=== PATIENT | male | born 1940 | race Caucasian/White ===

== ENCOUNTER 2016-04-30 18:30 | Inpatient (IN) | payer OTHER ==
[~2016-04-30] VITALS: Ht 177.8 cm; Wt 57.9 kg
[~2016-04-30 18:30] MED LIST: ALBU0.084 NEB; ASPI81CH43 PO; DOXY-216 PO; IPRASOL39 NEB; LIS10T PO; MET25T PO
[2016-04-30] MEDS ORDERED: ALBUTEROL SULF 2.5 MG/0.5ML(0.5%) NEB SOLN NEB ONE (19:00)
[2016-04-30] MEDS ORDERED: IPRATROPIUM BROM 0.5 MG/2.5ML INH SOL NEB ONE (19:00)
[2016-04-30 19:17] LABS: Basophils # (auto) 0 uL; Basophils % (auto) 0.3 % (0.0-2.0); Eosinophils # (auto) 0 uL; Eosinophils % (auto) 0.1 % (0.0-7.0); Hematocrit 44.7 % (41.0-53.0); Hemoglobin 14.4 g/dL (13.5-17.5); Lymphocytes # (auto) 0.4 uL; Lymphocytes % (auto) 8.5 % (10.0-50.0); Mean Corpuscular Hemoglobin 29.3 pg (28.0-32.0); Mean Corpuscular Hgb Conc. 32.2 g/dL (32.0-36.0); Mean Corpuscular Volume 91.1 fL (80.0-100.0); Mean Platelet Volume 7.4 fL (7.4-10.4); Monocytes # (auto) 0.2 uL; Monocytes % (auto) 3.5 % (0.0-12.0); Neutrophils # (auto) 4.2 uL; Neutrophils % (auto) 87.6 % (37.0-80.0); Platelet Count (auto) 366 10^3/uL (140-450); Red Cell Distribution Width 14.7 % (11.6-16.0); White Blood Cell 4.8 10^3/uL (4.4-10.8)
[2016-04-30 19:42] LABS: Albumin 3.4 g/dL (3.4-5.0); BUN/Creatinine Ratio 10.7; Bilirubin, Total 0.3 mg/dL (0.2-1.0); Calcium 8.8 mg/dL (8.5-10.1); Potassium 4.4 mmol/L (3.5-5.1)
[2016-04-30] MEDS ORDERED: cefTRIAXone 1GM/50ML D5W 50 ML IV ONE ×2 (20:15→21:30)
[2016-04-30] MEDS ORDERED: SODIUM CHLORIDE 0.9% 1,000 ML IV ONE (20:15)
[2016-04-30] MEDS ORDERED: methylPREDNISolone SOD SUCC 125 MG/2 ML VL IV ONE (20:15)
[2016-04-30] MEDS: SODIUM CHLORIDE 0.9% 1,000 ML IV SCH (21:24)
[2016-04-30] MEDS ORDERED: LACTULOSE 20Gm/30ML SOLN PO PRN (21:30)
[2016-04-30] MEDS ORDERED: PANTOPRAZOLE SODIUM 40 MG/10 ML VIAL IV ONE (21:30)
[2016-04-30] MEDS ORDERED: NITROGLYCERIN 0.4 MG SL TAB SL PRN (21:30)
[2016-04-30] MEDS ORDERED: MORPHINE SULF INJ 2 MG/ML SYRINGE 1ML IV PRN (21:30)
[2016-04-30] MEDS ORDERED: IOHEXOL 350 MG/ML 100ML IJ ONE (21:35)
[2016-04-30] MEDS ORDERED: ASPirin 81 mg TAB PO ONE (21:45)
[2016-04-30] MEDS: ENOXAPARIN SOD 80 MG/0.8ML SYRINGE SC SCH (22:00)
[2016-04-30] MEDS: METOPROLOL TARTRATE 25 MG TAB PO SCH (22:00)
[2016-04-30] MEDS: IPRATROPIUM BROM 0.5 MG/2.5ML INH SOL NEB SCH (22:28)
[2016-04-30] MEDS: ALBUTEROL SULF 2.5 MG/0.5ML(0.5%) NEB SOLN NEB SCH (22:28)
[2016-05-01] VITALS (7 sets, daily range): BP systolic 104–140; BP diastolic 56–84
[2016-05-01] MEDS: ALBUTEROL SULF 2.5 MG/0.5ML(0.5%) NEB SOLN NEB SCH ×5 (02:42→21:52)
[2016-05-01] MEDS: IPRATROPIUM BROM 0.5 MG/2.5ML INH SOL NEB SCH ×5 (02:42→21:51)
[2016-05-01 05:33] LABS: Basophils # (auto) 0 uL; Basophils % (auto) 0.3 % (0.0-2.0); Eosinophils # (auto) 0 uL; Eosinophils % (auto) 0.1 % (0.0-7.0); Hematocrit 40.4 % (41.0-53.0); Hemoglobin 13.1 g/dL (13.5-17.5); Lymphocytes # (auto) 0.6 uL; Mean Corpuscular Hemoglobin 29.5 pg (28.0-32.0); Mean Corpuscular Hgb Conc. 32.5 g/dL (32.0-36.0); Mean Corpuscular Volume 90.6 fL (80.0-100.0); Mean Platelet Volume 7.5 fL (7.4-10.4); Monocytes # (auto) 0.1 uL; Monocytes % (auto) 2.1 % (0.0-12.0); Neutrophils # (auto) 3.6 uL; Neutrophils % (auto) 83.5 % (37.0-80.0); Platelet Count (auto) 361 10^3/uL (140-450); Red Cell Distribution Width 14.6 % (11.6-16.0); White Blood Cell 4.3 10^3/uL (4.4-10.8)
[2016-05-01 05:54] LABS: Potassium 4.7 mmol/L (3.5-5.1)
[2016-05-01 05:56] LABS: BUN/Creatinine Ratio 14.5; Calcium 8.5 mg/dL (8.5-10.1)
[2016-05-01 05:58] LABS: Bilirubin, Total 0.2 mg/dL (0.2-1.0); Total Protein 6.3 g/dL (6.4-8.2)
[2016-05-01] MEDS ORDERED: ASPI325T4 PO (06:53)
[2016-05-01] MEDS ORDERED: GABA300C8 PO (06:55)
[2016-05-01] MEDS ORDERED: PRE1T PO (07:00)
[2016-05-01] MEDS: cefTRIAXone 1GM/50ML D5W 50 ML IV SCH (09:11)
[2016-05-01] MEDS: ASPirin 81 mg TAB PO SCH (09:12)
[2016-05-01] MEDS: PANTOPRAZOLE SODIUM 40 MG/10 ML VIAL IV SCH (09:13)
[2016-05-01] MEDS: methylPREDNISolone SOD SUCC 125 MG/2 ML VL IV SCH (09:13)
[2016-05-01] MEDS: LISINOPRIL 10 MG TAB PO SCH (09:14)
[2016-05-01] MEDS: METOPROLOL TARTRATE 25 MG TAB PO SCH ×2 (09:15→22:18)
[2016-05-01] MEDS: DILTIAZEM HCL 120MG ER CAP PO SCH (09:15)
[2016-05-01] MEDS: ENOXAPARIN SOD 80 MG/0.8ML SYRINGE SC SCH ×2 (09:30→22:19)
[2016-05-01] MEDS: SODIUM CHLORIDE 0.9% 1,000 ML IV SCH ×2 (09:54→22:19)
[2016-05-01] MEDS ORDERED: ENOXAPARIN SOD 30 MG/0.3 ML SYRINGE SC SCH (10:00)
[2016-05-01] MEDS: ACETAMINOPHEN 325 MG TAB PO PRN (13:29)
[2016-05-01] MEDS: BUDESONIDE (INHALATION) 0.5 MG/2 ML NEB NEB SCH (21:51)
[2016-05-02] MEDS: ACETAMINOPHEN 325 MG TAB PO PRN ×2 (02:01→06:18)
[2016-05-02] MEDS: IPRATROPIUM BROM 0.5 MG/2.5ML INH SOL NEB SCH ×4 (02:45→14:58)
[2016-05-02] MEDS: ALBUTEROL SULF 2.5 MG/0.5ML(0.5%) NEB SOLN NEB SCH ×4 (02:45→14:59)
[2016-05-02 05:00] VITALS: BP 117/69
[2016-05-02 05:21] LABS: Basophils # (auto) 0.2 uL; Basophils % (auto) 1.6 % (0.0-2.0); Eosinophils # (auto) 0 uL; Eosinophils % (auto) 0.1 % (0.0-7.0); Hematocrit 37.2 % (41.0-53.0); Hemoglobin 12.3 g/dL (13.5-17.5); Lymphocytes # (auto) 0.9 uL; Lymphocytes % (auto) 7.4 % (10.0-50.0); Mean Platelet Volume 8.4 fL (7.4-10.4); Monocytes # (auto) 0.4 uL; Monocytes % (auto) 3.3 % (0.0-12.0); Neutrophils # (auto) 10.6 uL; Neutrophils % (auto) 87.6 % (37.0-80.0); Platelet Count (auto) 372 10^3/uL (140-450); Red Cell Distribution Width 14.9 % (11.6-16.0); White Blood Cell 12.1 10^3/uL (4.4-10.8)
[2016-05-02 05:41] LABS: Calcium 8.1 mg/dL (8.5-10.1); Potassium 4.6 mmol/L (3.5-5.1)
[2016-05-02 05:44] LABS: BUN/Creatinine Ratio 21.7
[2016-05-02] MEDS: BUDESONIDE (INHALATION) 0.5 MG/2 ML NEB NEB SCH (06:52)
[2016-05-02 08:47] VITALS: BP 126/75
[2016-05-02] MEDS: ASPirin 81 mg TAB PO SCH (09:38)
[2016-05-02] MEDS: METOPROLOL TARTRATE 25 MG TAB PO SCH (09:38)
[2016-05-02] MEDS: ENOXAPARIN SOD 80 MG/0.8ML SYRINGE SC SCH (09:39)
[2016-05-02] MEDS: PANTOPRAZOLE SODIUM 40 MG/10 ML VIAL IV SCH (09:39)
[2016-05-02] MEDS: DILTIAZEM HCL 120MG ER CAP PO SCH (09:39)
[2016-05-02] MEDS: methylPREDNISolone SOD SUCC 125 MG/2 ML VL IV SCH (09:39)
[2016-05-02] MEDS: cefTRIAXone 1GM/50ML D5W 50 ML IV SCH (09:39)
[2016-05-02] MEDS: LISINOPRIL 10 MG TAB PO SCH (09:40)
[2016-05-02] MEDS: SODIUM CHLORIDE 0.9% 1,000 ML IV SCH (09:40)
[2016-05-02 13:00] VITALS: BP 121/80
[2016-05-02 15:23] VITALS: BP 121/80
== END 2016-05-02 16:12 | disposition home or self-care (01) | DRG 190 ==
LOC: ER 18:30 → EDBD 18:30 → TELE-WESTW 18:31
PROVIDERS: ADMIT Family Medicine; ATTEND Family Medicine
DX: J44.0 Chronic obstructive pulmonary disease with (acute) lower respiratory infection (principal); J96.20 Acute and chronic respiratory failure, unspecified whether with hypoxia or hypercapnia; J18.9 Pneumonia, unspecified organism; E87.1 Hypo-osmolality and hyponatremia; J44.1 Chronic obstructive pulmonary disease with (acute) exacerbation; E87.8 Other disorders of electrolyte and fluid balance, not elsewhere classified; K20.9 Esophagitis, unspecified; G62.9 Polyneuropathy, unspecified; I10 Essential (primary) hypertension; Z87.891 Personal history of nicotine dependence; Z99.81 Dependence on supplemental oxygen; Z82.49 Family history of ischemic heart disease and other diseases of the circulatory system
CPT/HCPCS: 36415; 71010; 71275; 80048; 80053; 84484; 85025; 85379; 87070; 87205; 93005; 93970; 94640; 94761; 96374; 96375; C9113; J0696

== ENCOUNTER → 2016-06-30 | Outpatient (CLI) | payer OTHER ==
[~2016-06-30] MED LIST changes: +ASPI325T4 PO; +GABA300C8 PO; +PRE1T PO
[2016-06-30 10:17] LABS: Urine Bilirubin Negative (Negative); Urine Blood Negative /uL (Negative); Urine Color Yellow (Yellow); Urine Glucose Normal (Normal); Urine Ketone Negative (Negative); Urine Nitrite Negative (Negative); Urine RBC <1 /hpf (0 - 3); Urine Squamous Epithelial Cell FEW /hpf (<5); Urine Urobilinogen Normal (Negative); Urine pH 6.5 (5.0-8.0)
[2016-06-30 10:38] LABS: INR 1.09 (0.9-1.15); Partial Thromboplastin Time 24.8 sec (22.64-33.71); Prothrombin Time 11.2 sec (9.37-12.3)
[2016-06-30 10:43] LABS: DEFINITIVE VIEW TRANSMISSION; Hematocrit 39.6 % (41.0-53.0); Hemoglobin 13.2 g/dL (13.5-17.5); Mean Corpuscular Hemoglobin 30.8 pg (28.0-32.0); Mean Corpuscular Hgb Conc. 33.4 g/dL (32.0-36.0); Mean Corpuscular Volume 92.2 fL (80.0-100.0); Platelet Count (auto) 410 10^3/uL (140-450); Red Cell Distribution Width 14.9 % (11.6-16.0); White Blood Cell 16.5 10^3/uL (4.4-10.8)
[2016-06-30 10:44] LABS: Albumin 3.4 g/dL (3.4-5.0); BUN/Creatinine Ratio 17.1; Bilirubin, Total 0.6 mg/dL (0.2-1.0); Calcium 9.3 mg/dL (8.5-10.1); Potassium 4.2 mmol/L (3.5-5.1); Total Protein 6.9 g/dL (6.4-8.2)
[2016-06-30 10:48] LABS: Metamyelocytes % 0; Myelocytes % 0; Promyelocytes % 0; Reactive Lymphocytes 0
[2016-06-30 11:47] LABS: Platelet Estimate Adequate
[2016-06-30 11:48] LABS: RBC Morphology Normal
== END | disposition home or self-care (01) ==
LOC: LAB 09:37
DX: Z01.818 Encounter for other preprocedural examination (principal)
CPT/HCPCS: 36415; 80053; 81001; 85007; 85027; 85610; 85730

== ENCOUNTER → 2016-08-05 | Outpatient (CLI) | payer OTHER ==
[2016-08-05 14:31] LABS: Basophils # (auto) 0 uL; Basophils % (auto) 0.4 % (0.0-2.0); Eosinophils # (auto) 0 uL; Eosinophils % (auto) 0.3 % (0.0-7.0); Hematocrit 41.9 % (41.0-53.0); Hemoglobin 13.7 g/dL (13.5-17.5); Lymphocytes # (auto) 1.6 uL; Lymphocytes % (auto) 14.3 % (10.0-50.0); Mean Corpuscular Hemoglobin 30.1 pg (28.0-32.0); Mean Corpuscular Hgb Conc. 32.8 g/dL (32.0-36.0); Mean Platelet Volume 7.4 fL (7.4-10.4); Monocytes # (auto) 0.1 uL; Monocytes % (auto) 1.2 % (0.0-12.0); Neutrophils # (auto) 9.4 uL; Neutrophils % (auto) 83.8 % (37.0-80.0); Platelet Count (auto) 478 10^3/uL (140-450); Red Cell Distribution Width 14.5 % (11.6-16.0); White Blood Cell 11.3 10^3/uL (4.4-10.8)
[2016-08-05 14:34] LABS: Urine Bilirubin Negative (Negative); Urine Blood Negative /uL (Negative); Urine Color Yellow (Yellow); Urine Glucose Normal (Normal); Urine Ketone Negative (Negative); Urine Nitrite Negative (Negative); Urine Urobilinogen Normal (Negative)
[2016-08-05 14:52] LABS: Partial Thromboplastin Time 23.8 sec (22.64-33.71); Prothrombin Time 10.8 sec (9.37-12.3)
[2016-08-05 14:59] LABS: Albumin 3.7 g/dL (3.4-5.0); BUN/Creatinine Ratio 17.4; Bilirubin, Total 0.4 mg/dL (0.2-1.0); Calcium 9.4 mg/dL (8.5-10.1); Potassium 4.7 mmol/L (3.5-5.1); Total Protein 7.3 g/dL (6.4-8.2)
== END | disposition home or self-care (01) ==
LOC: LAB 14:10
PROVIDERS: ATTEND Specialist
DX: Z79.01 Long term (current) use of anticoagulants (principal); H25.11 Age-related nuclear cataract, right eye
CPT/HCPCS: 36415; 80053; 81003; 85025; 85610; 85730

== ENCOUNTER → 2017-01-06 | Outpatient (CLI) | payer OTHER ==
[~2017-01-06] MED LIST changes: +GABA-497 PO; -GABA300C8 PO
[2017-01-06 09:30] LABS: Urine Bilirubin Negative (Negative); Urine Blood Negative /uL (Negative); Urine Color Yellow (Yellow); Urine Glucose Normal (Normal); Urine Ketone Negative (Negative); Urine Nitrite Negative (Negative); Urine RBC <1 /hpf (0 - 3); Urine Urobilinogen Normal (Negative); Urine pH 7.5 (5.0-8.0)
[2017-01-06 09:32] LABS: Basophils # (auto) 0.1 uL; Basophils % (auto) 1.2 % (0.0-2.0); Eosinophils # (auto) 0.3 uL; Eosinophils % (auto) 3.8 % (0.0-7.0); Hematocrit 41.2 % (41.0-53.0); Hemoglobin 13.6 g/dL (13.5-17.5); Lymphocytes # (auto) 1.9 uL; Lymphocytes % (auto) 22.3 % (10.0-50.0); Mean Corpuscular Hemoglobin 30.7 pg (28.0-32.0); Mean Corpuscular Hgb Conc. 32.9 g/dL (32.0-36.0); Mean Corpuscular Volume 93.3 fL (80.0-100.0); Mean Platelet Volume 8.2 fL (7.4-10.4); Monocytes # (auto) 0.7 uL; Neutrophils # (auto) 5.5 uL; Neutrophils % (auto) 64.7 % (37.0-80.0); Platelet Count (auto) 326 10^3/uL (140-450); Red Cell Distribution Width 14.5 % (11.6-16.0); White Blood Cell 8.4 10^3/uL (4.4-10.8)
[2017-01-06 09:58] LABS: Albumin 3.5 g/dL (3.4-5.0); BUN/Creatinine Ratio 17.9; Bilirubin, Total 0.3 mg/dL (0.2-1.0); Calcium 8.9 mg/dL (8.5-10.1); Potassium 4.7 mmol/L (3.5-5.1); Total Protein 6.9 g/dL (6.4-8.2)
== END | disposition home or self-care (01) ==
LOC: LAB 08:35
PROVIDERS: ATTEND Internal Medicine
DX: I10 Essential (primary) hypertension (principal); J44.9 Chronic obstructive pulmonary disease, unspecified; D64.9 Anemia, unspecified; E55.9 Vitamin D deficiency, unspecified; R73.09 Other abnormal glucose; R97.20 Elevated prostate specific antigen [PSA]
CPT/HCPCS: 36415; 80053; 80061; 81001; 82306; 83036; 84153; 84443; 85025

== ENCOUNTER → 2017-05-19 | Outpatient (CLI) | payer OTHER ==
[~2017-05-19] MED LIST changes: -GABA-497 PO; +GABA300C10 PO
[2017-05-19 14:12] LABS: Basophils # (auto) 0.1 uL; Eosinophils # (auto) 0 uL; Eosinophils % (auto) 0.2 % (0.0-7.0); Hematocrit 42.6 % (41.0-53.0); Hemoglobin 13.9 g/dL (13.5-17.5); Lymphocytes # (auto) 1.2 uL; Lymphocytes % (auto) 13.3 % (10.0-50.0); Mean Corpuscular Hemoglobin 30.8 pg (28.0-32.0); Mean Corpuscular Hgb Conc. 32.7 g/dL (32.0-36.0); Mean Corpuscular Volume 94.4 fL (80.0-100.0); Monocytes # (auto) 0.4 uL; Monocytes % (auto) 3.9 % (0.0-12.0); Neutrophils # (auto) 7.6 uL; Neutrophils % (auto) 81.6 % (37.0-80.0); Nucleated Red Blood Cells % 0.1 %; Platelet Count (auto) 370 10^3/uL (140-450); Red Blood Cells 4.51 10^6/uL (4.5-5.90); Red Cell Distribution Width 13.8 % (11.8-14.3); White Blood Cell 9.3 10^3/uL (4.4-10.8)
[2017-05-19 14:28] LABS: INR 0.96 (0.9-1.15); Partial Thromboplastin Time 23.8 sec (22.64-33.71); Prothrombin Time 10.5 sec (9.37-12.3)
== END | disposition home or self-care (01) ==
LOC: LAB 13:50
DX: R91.1 Solitary pulmonary nodule (principal)
CPT/HCPCS: 36415; 85025; 85610; 85730

== ENCOUNTER → 2017-12-03 | Outpatient (CLI) | payer OTHER ==
[~2017-12-03] MED LIST changes: +FLUT100I IN; +GABA100C9 PO; +PRE5T PO
== END | disposition home or self-care (01) ==
LOC: LAB 12:18
DX: J44.1 Chronic obstructive pulmonary disease with (acute) exacerbation (principal); R91.8 Other nonspecific abnormal finding of lung field; J44.9 Chronic obstructive pulmonary disease, unspecified; F17.200 Nicotine dependence, unspecified, uncomplicated; Z79.82 Long term (current) use of aspirin
CPT/HCPCS: 87070; 87077; 87186; 87205

== ENCOUNTER 2017-12-20 15:10 | Inpatient (IN) | payer OTHER ==
[~2017-12-20] VITALS: Ht 177.8 cm; Wt 70.3 kg
[~2017-12-20 15:10] MED LIST changes: -FLUT100I IN; -GABA100C9 PO; -PRE5T PO
[2017-12-20] MEDS ORDERED: methylPREDNISolone SOD SUCC 125 MG/2 ML VL IV ONE (16:15)
[2017-12-20] MEDS ORDERED: IPRATROPIUM BROM 0.5 MG/2.5ML INH SOL NEB ONE (16:15)
[2017-12-20] MEDS ORDERED: ALBUTEROL SULF 2.5 MG/0.5ML(0.5%) NEB SOLN NEB ONE (16:15)
[2017-12-20] MEDS ORDERED: cefTRIAXone 1GM/10ml IVPUSH 10 ML IV ONE (16:30)
[2017-12-20 16:40] LABS: Red Blood Cells 4.52 10^6/uL (4.5-5.90); White Blood Cell 16.1 10^3/uL (4.4-10.8)
[2017-12-20 16:42] LABS: Hematocrit 42.3 % (41.0-53.0); Mean Corpuscular Hemoglobin 30.9 pg (28.0-32.0); Mean Corpuscular Hgb Conc. 33.1 g/dL (32.0-36.0); Mean Corpuscular Volume 93.5 fL (80.0-100.0); Platelet Count (auto) 576 10^3/uL (140-450); Red Cell Distribution Width 13.9 % (11.8-14.3)
[2017-12-20] MEDS ORDERED: ACETAMINOPHEN 325 MG TAB PO PRN (16:45)
[2017-12-20] MEDS ORDERED: MORPHINE SULF INJ 2 MG/ML SYRINGE 1ML IV PRN ×2 (16:45)
[2017-12-20] MEDS ORDERED: NITROGLYCERIN 0.4 MG SL TAB SL PRN (16:45)
[2017-12-20] MEDS ORDERED: ONDANSETRON HCL 4 MG/2 ML VIAL IV PRN (16:45)
[2017-12-20] MEDS ORDERED: DOCUSATE SOD 100 MG CAP PO PRN (16:45)
[2017-12-20 16:51] LABS: Band Neutrophils % (manual) 0; Basophils % (manual) 0 (0.0-2.0); Blast Cells 0; Eosinophils % (manual) 0 (0-7); Metamyelocytes % 0; Myelocytes % 0; Promyelocytes % 0; Reactive Lymphocytes 0
[2017-12-20] MEDS ORDERED: MULTIPLE VITAMIN TAB PO ONE (17:00)
[2017-12-20] MEDS ORDERED: DILTIAZEM HCL 120MG ER CAP PO ONE (17:00)
[2017-12-20] MEDS ORDERED: LISINOPRIL 10 MG TAB PO ONE (17:00)
[2017-12-20] MEDS ORDERED: FAMOTIDINE 20 MG TAB PO ONE (17:00)
[2017-12-20 17:03] LABS: Albumin 3.2 g/dL (3.4-5.0); BUN/Creatinine Ratio 16.3; Bilirubin, Total 0.4 mg/dL (0.2-1.0); Calcium 8.9 mg/dL (8.5-10.1); Potassium 4.8 mmol/L (3.5-5.1); Total Protein 6.9 g/dL (6.4-8.2)
[2017-12-20 17:39] LABS: Lymphocytes % (manual) 5 (10.0-50.0); Monocytes % (manual) 5 (0-12)
[2017-12-20] MEDS: ALBUTEROL SULF 2.5 MG/0.5ML(0.5%) NEB SOLN NEB SCH ×2 (18:07→22:49)
[2017-12-20] MEDS: IPRATROPIUM BROM 0.5 MG/2.5ML INH SOL NEB SCH ×2 (18:07→22:49)
[2017-12-20] MEDS: methylPREDNISolone SOD SUCC 40 MG/ML VL IV SCH (18:35)
[2017-12-20 18:48] LABS: Urine WBC None Seen /hpf (0 - 3)
[2017-12-20 18:59] LABS: Urine Bacteria NONE SEEN /hpf (None Seen); Urine Blood Negative /uL (Negative); Urine Specific Gravity 1.011 (1.001-1.035)
[2017-12-20] MEDS ORDERED: DEXTROSE (50%) 50ML SYRG IV PRN (19:45)
[2017-12-20 20:13] VITALS: BP 123/69
[2017-12-20] MEDS ORDERED: IOHEXOL 350 MG/ML 100ML IJ ONE (20:35)
[2017-12-20] MEDS: GABAPENTIN 100 MG CAP PO SCH (21:56)
[2017-12-20] MEDS: HYDROcodone-ACET 5/325MG TAB PO PRN (21:57)
[2017-12-20] MEDS: FAMOTIDINE 20 MG TAB PO SCH (21:57)
[2017-12-20] MEDS: ACCU-CHEK COMFORT CURVE STRIP VI SCH (21:57)
[2017-12-20] MEDS: InsuLIN REG 1unit/0.01ml Soln (100units/ml) SC SCH (21:57)
[2017-12-20] MEDS: TEMAZEPAM 15 MG CAP PO PRN (21:58)
[2017-12-20] MEDS: SODIUM CHLOR 0.9% PF (SALINE LOCK) 10ML VIAL/SYR IV SCH (22:00)
[2017-12-20] MEDS: BUDESONIDE (INHALATION) 0.5 MG/2 ML NEB NEB SCH (22:49)
[2017-12-21] MEDS: methylPREDNISolone SOD SUCC 40 MG/ML VL IV SCH ×5 (00:23→23:27)
[2017-12-21] MEDS: IPRATROPIUM BROM 0.5 MG/2.5ML INH SOL NEB SCH ×6 (02:38→22:55)
[2017-12-21] MEDS: ALBUTEROL SULF 2.5 MG/0.5ML(0.5%) NEB SOLN NEB SCH ×6 (02:38→22:55)
[2017-12-21] MEDS: SODIUM CHLOR 0.9% PF (SALINE LOCK) 10ML VIAL/SYR IV SCH ×3 (06:27→21:58)
[2017-12-21] MEDS: ACCU-CHEK COMFORT CURVE STRIP VI SCH ×4 (07:00→21:58)
[2017-12-21] MEDS: InsuLIN REG 1unit/0.01ml Soln (100units/ml) SC SCH ×4 (07:54→21:59)
[2017-12-21] MEDS: Glucerna Carbsteady SHAKE Vanilla 8oz PO SCH ×3 (08:38→18:03)
[2017-12-21 08:58] LABS: Red Cell Distribution Width 13.9 % (11.8-14.3)
[2017-12-21 09:00] LABS: Hematocrit 43.9 % (41.0-53.0); Hemoglobin 14.7 g/dL (13.5-17.5); Mean Corpuscular Hemoglobin 31.1 pg (28.0-32.0); Mean Corpuscular Hgb Conc. 33.4 g/dL (32.0-36.0); Mean Corpuscular Volume 92.9 fL (80.0-100.0); Platelet Count (auto) 579 10^3/uL (140-450); Red Blood Cells 4.73 10^6/uL (4.5-5.90); White Blood Cell 11.4 10^3/uL (4.4-10.8)
[2017-12-21] MEDS ORDERED: cefTRIAXone 1GM/10ml IVPUSH 10 ML IV SCH (09:00)
[2017-12-21 09:02] LABS: Band Neutrophils % (manual) 0; Basophils % (manual) 0 (0.0-2.0); Blast Cells 0; Eosinophils % (manual) 0 (0-7); Metamyelocytes % 0; Myelocytes % 0; Promyelocytes % 0; Reactive Lymphocytes 0
[2017-12-21 09:22] LABS: Alanine Aminotransferase 35 U/L (16-61); Albumin 3.1 g/dL (3.4-5.0); Alkaline Phosphatase 90 U/L (45-117); Anion Gap 7 (5-15); Aspartate Aminotransferase 17 U/L (15-37); BUN/Creatinine Ratio 17.6; Bilirubin, Total 0.4 mg/dL (0.2-1.0); Blood Urea Nitrogen 16 mg/dL (7-18); Calcium 8.6 mg/dL (8.5-10.1); Carbon Dioxide 30 mmol/L (21-32); Chloride 93 mmol/L (98-107); GFR African American 104 mL/min; GFR Non-African American 86 mL/min; Glucose 159 mg/dL (74-106); Potassium 4.5 mmol/L (3.5-5.1); Sodium 130 mmol/L (136-145); Total Protein 7.3 g/dL (6.4-8.2)
[2017-12-21 09:36] LABS: Lymphocytes % (manual) 2 (10.0-50.0); Monocytes % (manual) 2 (0-12)
[2017-12-21] MEDS: MULTIPLE VITAMIN TAB PO SCH (10:07)
[2017-12-21] MEDS: DILTIAZEM HCL 120MG ER CAP PO SCH (10:07)
[2017-12-21] MEDS: LISINOPRIL 10 MG TAB PO SCH (10:07)
[2017-12-21] MEDS: FAMOTIDINE 20 MG TAB PO SCH ×2 (10:07→21:58)
[2017-12-21] MEDS: BUDESONIDE (INHALATION) 0.5 MG/2 ML NEB NEB SCH ×2 (10:30→19:46)
[2017-12-21] MEDS ORDERED: GABA100C9 PO (15:53)
[2017-12-21] MEDS ORDERED: FLUT100I IN (15:57)
[2017-12-21] MEDS ORDERED: LEVOFLOXACIN 750MG 150 ML IV ONE (16:15)
[2017-12-21 16:21] VITALS: BP 134/73
[2017-12-21 16:57] VITALS: BP 134/73
[2017-12-21] MEDS ORDERED: PRE5T PO (17:02)
[2017-12-21 21:29] VITALS: BP 123/71
[2017-12-21] MEDS: TEMAZEPAM 15 MG CAP PO PRN (21:57)
[2017-12-21] MEDS: GABAPENTIN 100 MG CAP PO SCH (21:58)
[2017-12-22] MEDS: ALBUTEROL SULF 2.5 MG/0.5ML(0.5%) NEB SOLN NEB SCH ×6 (02:32→22:30)
[2017-12-22] MEDS: IPRATROPIUM BROM 0.5 MG/2.5ML INH SOL NEB SCH ×6 (02:32→22:30)
[2017-12-22 04:32] VITALS: BP 113/66
[2017-12-22] MEDS: methylPREDNISolone SOD SUCC 40 MG/ML VL IV SCH ×4 (05:53→23:57)
[2017-12-22] MEDS: SODIUM CHLOR 0.9% PF (SALINE LOCK) 10ML VIAL/SYR IV SCH ×3 (06:30→21:28)
[2017-12-22] MEDS: ACCU-CHEK COMFORT CURVE STRIP VI SCH ×4 (06:30→21:25)
[2017-12-22] MEDS: InsuLIN REG 1unit/0.01ml Soln (100units/ml) SC SCH ×4 (06:31→21:29)
[2017-12-22] MEDS: BUDESONIDE (INHALATION) 0.5 MG/2 ML NEB NEB SCH ×2 (06:42→22:30)
[2017-12-22 09:00] VITALS: BP 113/68
[2017-12-22] MEDS: LISINOPRIL 10 MG TAB PO SCH (10:00)
[2017-12-22] MEDS: Glucerna Carbsteady SHAKE Vanilla 8oz PO SCH ×3 (10:31→17:25)
[2017-12-22] MEDS: LEVOFLOXACIN 750MG 150 ML IV SCH (10:32)
[2017-12-22] MEDS: MULTIPLE VITAMIN TAB PO SCH (10:33)
[2017-12-22] MEDS: FAMOTIDINE 20 MG TAB PO SCH ×2 (10:33→21:24)
[2017-12-22] MEDS: DILTIAZEM HCL 120MG ER CAP PO SCH (10:34)
[2017-12-22 13:00] VITALS: BP 117/69
[2017-12-22 16:42] VITALS: BP 121/63
[2017-12-22] MEDS: HYDROcodone-ACET 5/325MG TAB PO PRN (17:13)
[2017-12-22] MEDS: GABAPENTIN 100 MG CAP PO SCH (21:24)
[2017-12-22] MEDS: TEMAZEPAM 15 MG CAP PO PRN (21:24)
[2017-12-22 21:38] VITALS: BP 122/65
[2017-12-23 04:50] LABS: Basophils # (auto) 0 uL; Eosinophils # (auto) 0 uL; Lymphocytes # (auto) 0.5 uL; Mean Corpuscular Hgb Conc. 33.7 g/dL (32.0-36.0); Monocytes # (auto) 0.4 uL; Neutrophils # (auto) 14.1 uL
[2017-12-23 04:52] LABS: Basophils % (auto) 0.2 % (0.0-2.0); Hemoglobin 13.1 g/dL (13.5-17.5); Lymphocytes % (auto) 3.3 % (10.0-50.0); Mean Corpuscular Hemoglobin 31.2 pg (28.0-32.0); Mean Corpuscular Volume 92.7 fL (80.0-100.0); Monocytes % (auto) 2.8 % (0.0-12.0); Neutrophils % (auto) 93.7 % (37.0-80.0); Platelet Count (auto) 466 10^3/uL (140-450); Red Cell Distribution Width 13.9 % (11.8-14.3)
[2017-12-23 05:18] LABS: Albumin 2.7 g/dL (3.4-5.0); BUN/Creatinine Ratio 37.7; Bilirubin, Total 0.2 mg/dL (0.2-1.0); Calcium 8.7 mg/dL (8.5-10.1); Potassium 4.5 mmol/L (3.5-5.1); Total Protein 6.2 g/dL (6.4-8.2)
[2017-12-23 05:25] VITALS: BP 117/68
[2017-12-23] MEDS: IPRATROPIUM BROM 0.5 MG/2.5ML INH SOL NEB SCH ×3 (06:00→14:11)
[2017-12-23] MEDS: ALBUTEROL SULF 2.5 MG/0.5ML(0.5%) NEB SOLN NEB SCH ×3 (06:01→14:11)
[2017-12-23] MEDS: methylPREDNISolone SOD SUCC 40 MG/ML VL IV SCH ×2 (06:13→12:05)
[2017-12-23] MEDS: SODIUM CHLOR 0.9% PF (SALINE LOCK) 10ML VIAL/SYR IV SCH ×2 (06:14→14:00)
[2017-12-23] MEDS: ACCU-CHEK COMFORT CURVE STRIP VI SCH ×2 (06:23→11:47)
[2017-12-23] MEDS: InsuLIN REG 1unit/0.01ml Soln (100units/ml) SC SCH ×2 (06:23→11:47)
[2017-12-23] MEDS: Glucerna Carbsteady SHAKE Vanilla 8oz PO SCH ×2 (08:00→12:05)
[2017-12-23 09:00] VITALS: BP 124/69
[2017-12-23] MEDS: LEVOFLOXACIN 750MG 150 ML IV SCH (10:00)
[2017-12-23] MEDS: MULTIPLE VITAMIN TAB PO SCH (10:00)
[2017-12-23] MEDS: DILTIAZEM HCL 120MG ER CAP PO SCH (10:00)
[2017-12-23] MEDS: LISINOPRIL 10 MG TAB PO SCH (10:00)
[2017-12-23] MEDS: BUDESONIDE (INHALATION) 0.5 MG/2 ML NEB NEB SCH (10:23)
[2017-12-23] MEDS: FAMOTIDINE 20 MG TAB PO SCH (10:42)
[2017-12-23 12:14] VITALS: BP 125/72
[2017-12-23 16:46] VITALS: BP 135/67
== END 2017-12-23 19:20 | disposition home or self-care (01) | DRG 189 ==
LOC: ER 15:10 → TELE 15:11 → TELE-WESTW 12-21 13:47
PROVIDERS: ADMIT Internal Medicine; ATTEND Internal Medicine Pulmonary Disease
DX: J96.01 Acute respiratory failure with hypoxia (principal); J44.1 Chronic obstructive pulmonary disease with (acute) exacerbation; E44.0 Moderate protein-calorie malnutrition; E87.1 Hypo-osmolality and hyponatremia; J45.901 Unspecified asthma with (acute) exacerbation; J44.0 Chronic obstructive pulmonary disease with (acute) lower respiratory infection; J98.11 Atelectasis; E11.21 Type 2 diabetes mellitus with diabetic nephropathy; E11.22 Type 2 diabetes mellitus with diabetic chronic kidney disease; E11.65 Type 2 diabetes mellitus with hyperglycemia; I12.9 Hypertensive chronic kidney disease with stage 1 through stage 4 chronic kidney disease, or unspecified chronic kidney disease; J20.9 Acute bronchitis, unspecified; N18.2 Chronic kidney disease, stage 2 (mild); Z82.49 Family history of ischemic heart disease and other diseases of the circulatory system; Z87.891 Personal history of nicotine dependence; Z99.81 Dependence on supplemental oxygen; I70.90 Unspecified atherosclerosis
CPT/HCPCS: 36415; 71046; 71250; 71275; 80053; 81001; 82962; 83036; 84443; 84484; 85007; 85025; 85027; 85379; 93005; 93306; 93970; 94640; 94761; 96374; 96375; J0696; J1815; J1956

== ENCOUNTER → 2018-02-11 | Outpatient (CLI) | payer OTHER ==
[~2018-02-11] MED LIST changes: -ALBU0.084 NEB; -ASPI81CH43 PO; -DOXY-216 PO; +FLUT100I IN; +GABA100C9 PO; -GABA300C10 PO; -IPRASOL39 NEB; -MET25T PO; -PRE1T PO
== END | disposition home or self-care (01) ==
LOC: LAB 11:28
DX: J44.9 Chronic obstructive pulmonary disease, unspecified (principal); R91.1 Solitary pulmonary nodule
CPT/HCPCS: 86635

== ENCOUNTER → 2018-03-01 | Outpatient (CLI) | payer OTHER | END | disposition home or self-care (01) | LOC: LAB 12:11 | DX: R91.1 Solitary pulmonary nodule (principal) | CPT/HCPCS: 87070; 87205 ==

== ENCOUNTER → 2018-06-20 | Outpatient (CLI) | payer OTHER | END | disposition home or self-care (01) | LOC: LAB 12:12 | DX: J41.1 Mucopurulent chronic bronchitis (principal) | CPT/HCPCS: 82785 ==

== ENCOUNTER → 2018-07-07 | Outpatient (CLI) | payer OTHER ==
[2018-07-07 09:12] LABS: Basophils # (auto) 0.1 uL; Basophils % (auto) 1.4 % (0.0-2.0); Eosinophils # (auto) 0.2 uL; Eosinophils % (auto) 2.4 % (0.0-7.0); Hematocrit 38.4 % (41.0-53.0); Hemoglobin 12.8 g/dL (13.5-17.5); Lymphocytes # (auto) 2.1 uL; Lymphocytes % (auto) 25.8 % (10.0-50.0); Mean Corpuscular Hemoglobin 30.9 pg (28.0-32.0); Mean Corpuscular Hgb Conc. 33.2 g/dL (32.0-36.0); Monocytes # (auto) 0.8 uL; Monocytes % (auto) 9.1 % (0.0-12.0); Neutrophils # (auto) 5.1 uL; Neutrophils % (auto) 61.3 % (37.0-80.0); Nucleated Red Blood Cells % 0.1 %; Platelet Count (auto) 362 10^3/uL (140-450); Red Blood Cells 4.13 10^6/uL (4.5-5.90); Red Cell Distribution Width 14.7 % (11.8-14.3); White Blood Cell 8.3 10^3/uL (4.4-10.8)
[2018-07-07 09:42] LABS: Albumin 3.4 g/dL (3.4-5.0); Calcium 9.5 mg/dL (8.5-10.1); Potassium 4.5 mmol/L (3.5-5.1)
[2018-07-07 09:47] LABS: BUN/Creatinine Ratio 20.9; Bilirubin, Total 0.3 mg/dL (0.2-1.0); Total Protein 7.3 g/dL (6.4-8.2)
== END | disposition home or self-care (01) ==
LOC: LAB 08:58
PROVIDERS: ATTEND Physician Assistant
DX: Z12.5 Encounter for screening for malignant neoplasm of prostate (principal); D64.9 Anemia, unspecified; R73.9 Hyperglycemia, unspecified; J96.11 Chronic respiratory failure with hypoxia; Z99.81 Dependence on supplemental oxygen
CPT/HCPCS: 36415; 80053; 80061; 83036; 84153; 85025

== ENCOUNTER → 2018-11-22 | Outpatient (CLI) | payer OTHER ==
[~2018-11-22] MED LIST changes: +DILT1CAP77 PO; -FLUT100I IN; +PRED1PAK9 PO; +ROFL1TAB2 PO
[2018-11-22 14:43] LABS: BUN/Creatinine Ratio 24.8; Calcium 8.8 mg/dL (8.5-10.1); Potassium 4.4 mmol/L (3.5-5.1)
== END | disposition home or self-care (01) ==
LOC: LAB 14:13
DX: J44.9 Chronic obstructive pulmonary disease, unspecified (principal)
CPT/HCPCS: 36415; 80048

== ENCOUNTER → 2018-12-08 | Outpatient (CLI) | payer OTHER | END | disposition home or self-care (01) | LOC: LAB 12:45 | PROVIDERS: ATTEND Internal Medicine Pulmonary Disease | DX: J18.1 Lobar pneumonia, unspecified organism (principal) | CPT/HCPCS: 87070; 87205 ==

== ENCOUNTER → 2018-12-17 | Outpatient (CLI) | payer OTHER | END | disposition home or self-care (01) | LOC: LAB 12:00 | PROVIDERS: ATTEND Nurse Practitioner Family | DX: R05 Cough (principal) | CPT/HCPCS: 87070; 87205 ==

== ENCOUNTER → 2019-01-10 | Outpatient (CLI) | payer OTHER ==
[~2019-01-10] MED LIST changes: +ALBUAER3 IN; -ASPI325T4 PO; +DIGO0.1238 PO; +DOXY-216 PO; +FLUC200T35 PO; -LIS10T PO; +PANT40TA2 PO
[2019-01-10 14:50] LABS: Calcium 8.8 mg/dL (8.5-10.1); Potassium 4.6 mmol/L (3.5-5.1)
== END | disposition home or self-care (01) ==
LOC: LAB 13:53
PROVIDERS: ATTEND Internal Medicine
DX: E87.1 Hypo-osmolality and hyponatremia (principal); R00.0 Tachycardia, unspecified
CPT/HCPCS: 36415; 80048; 80162

== ENCOUNTER → 2019-04-13 | Outpatient (CLI) | payer OTHER ==
[~2019-04-13] VITALS: Ht 177.8 cm; Wt 77.1 kg
[~2019-04-13] MED LIST changes: +ATROPINE SULFATE 0.4 MG/1 ML VIAL IV ONE; +DOBUTamine 1000MCG/ML 100 ML IV STA; -DOXY-216 PO; +DOXY-286 PO
== END | disposition home or self-care (01) ==
LOC: XY 09:07
PROVIDERS: ATTEND Internal Medicine
DX: I11.0 Hypertensive heart disease with heart failure (principal); I50.33 Acute on chronic diastolic (congestive) heart failure; I25.10 Atherosclerotic heart disease of native coronary artery without angina pectoris; E78.5 Hyperlipidemia, unspecified; R07.89 Other chest pain
CPT/HCPCS: 78452; 93017; A9500; J0461; J1250

== ENCOUNTER 2019-05-06 18:54 | Inpatient (IN) | payer OTHER ==
[~2019-05-06] VITALS: Ht 175.3 cm; Wt 60.1 kg
[~2019-05-06 18:54] MED LIST changes: -ATROPINE SULFATE 0.4 MG/1 ML VIAL IV ONE; -DOBUTamine 1000MCG/ML 100 ML IV STA
[2019-05-06] MEDS ORDERED: FUROSEMIDE 20 MG/2 ML VIAL IV ONE (19:15)
[2019-05-06] MEDS ORDERED: methylPREDNISolone SOD SUCC 125 MG/2 ML VL IV ONE (19:15)
[2019-05-06] MEDS ORDERED: IPRATROPIUM BROM 0.5 MG/2.5ML INH SOL NEB ONE (19:15)
[2019-05-06] MEDS ORDERED: ALBUTEROL SULF 2.5 MG/0.5ML(0.5%) NEB SOLN NEB ONE (19:15)
[2019-05-06 20:13] LABS: Basophils # (auto) 0.1 uL; Basophils % (auto) 0.8 % (0.0-2.0); Eosinophils # (auto) 0 uL; Eosinophils % (auto) 0.5 % (0.0-7.0); Hematocrit 37.2 % (41.0-53.0); Hemoglobin 12.6 g/dL (13.5-17.5); Lymphocytes # (auto) 1.1 uL; Lymphocytes % (auto) 11.5 % (10.0-50.0); Mean Corpuscular Hemoglobin 30.3 pg (28.0-32.0); Mean Corpuscular Hgb Conc. 33.8 g/dL (32.0-36.0); Mean Corpuscular Volume 89.6 fL (80.0-100.0); Monocytes # (auto) 0.6 uL; Monocytes % (auto) 6.5 % (0.0-12.0); Neutrophils # (auto) 7.5 uL; Neutrophils % (auto) 80.7 % (37.0-80.0); Nucleated Red Blood Cells % 0.1 %; Platelet Count (auto) 391 10^3/uL (140-450); Red Blood Cells 4.15 10^6/uL (4.5-5.90); White Blood Cell 9.2 10^3/uL (4.4-10.8)
[2019-05-06 20:29] LABS: INR 1.13 (0.9-1.15); Partial Thromboplastin Time 29.2 sec (23.64-32.05)
[2019-05-06 20:31] LABS: Albumin 2.6 g/dL (3.4-5.0); Anion Gap 3 (5-15); Blood Urea Nitrogen 20 mg/dL (7-18); Calcium 8.9 mg/dL (8.5-10.1); Carbon Dioxide 38 mmol/L (21-32); Chloride 100 mmol/L (98-107); Glucose 144 mg/dL (74-106); Sodium 141 mmol/L (136-145)
[2019-05-06 20:38] LABS: Alanine Aminotransferase 18 U/L (16-61); Alkaline Phosphatase 106 U/L (45-117); Aspartate Aminotransferase 17 U/L (15-37); Bilirubin, Total 0.4 mg/dL (0.2-1.0); GFR African American 109 mL/min; GFR Non-African American 90 mL/min; Total Protein 7.5 g/dL (6.4-8.2)
[2019-05-06 23:04] LABS: Urine Bacteria NONE SEEN /hpf (None Seen); Urine Blood Negative /uL (Negative); Urine Hyaline Cast MOD /lpf (0 - 2); Urine Mucus FEW (None Seen); Urine Specific Gravity 1.011 (1.001-1.035); Urine WBC <1 /hpf (0 - 3)
[2019-05-06 23:41] VITALS: BP 125/64
--- NOTE | 2019-05-06 23:50 | NUR ---
Respiratory note: PT ASSESSED FOR PRN MED NEB TX. HR 82, RR 18, SPO2 92% ON 4L NC. NO SIGNS OF ANY RESPIRATORY DISTRESS NOTED. ADVISED PT TO CALL IF TX IS NEEDED. 1X MED NEB TX GIVEN IN ER.
[2019-05-07 01:47] VITALS: BP 126/75
--- NOTE | 2019-05-07 01:48 | NUR ---
Telemetry admit from ER FIELDING,BRYON Holt admitted to Telemetry. Patient oriented to LYNN THOMPSON, RN primary RN, unit, room, bed, and unit policies regarding patient care and visiting hours. Patient now on continuous telemetry monitoring, tele box #31 and telemetry reading on arrival to unit is 84. Patient placed on bedside oxygen 3L via Oxymizer, weighed by bedscale and encouraged to call if they need something, call light within reach. All questions and concerns addressed, patient verbalized understanding. Will continue to monitor.
[2019-05-07] MEDS: IPRATROPIUM BROM 0.5 MG/2.5ML INH SOL NEB PRN ×5 (03:02→18:50)
[2019-05-07] MEDS: ALBUTEROL SULF 2.5 MG/0.5ML(0.5%) NEB SOLN NEB PRN ×4 (03:03→18:50)
[2019-05-07] MEDS: cefTRIAXone 1GM/50ML D5W 50 ML IV SCH (03:31)
[2019-05-07] MEDS: AZITHROMYCIN 500MG/ 250ML 250 ML IV SCH (04:24)
[2019-05-07 05:00] VITALS: BP 131/71
--- NOTE | 2019-05-07 05:20 | NUR ---
Paged Hospitalist Paged Hospitalist to report EKG showing onset of atrial fibrillation. Patient denies chest pain, no signs or symptoms of distress noted. Vital signs stable. No new orders at this time. Will continue to monitor.
--- NOTE | 2019-05-07 07:59 | NUR ---
Opening Shift Note: Received report from NOC RN. Assumed care of patient, awake and alert. No S/S of distress/SOB or pain. Bed in lowest locked position, side rails up x 2, call light within reach. Patient instructed on POC and to call for assist PRN, will continue to monitor for changes Q1hr and PRN.
[2019-05-07 09:00] VITALS: BP 124/76
[2019-05-07] MEDS: methylPREDNISolone SOD SUCC 125 MG/2 ML VL IV SCH (09:31)
[2019-05-07] MEDS ORDERED: PNEUMOCOCCAL VACC POLYS 25 MCG/0.5 ML VIAL IM ONE (10:00)
--- NOTE | 2019-05-07 10:45 | NUR ---
WOUND CARE NOTE: IN TO SEE PATIENT AT THIS TIME PER WOUND CARE CONSULT REQUEST. PATIENT NOTED UPON ADMIT TO HAVE MULTIPLE WOUNDS TO BILATERAL ARMS. WOUND PHOTOS TAKEN AT THAT TIME BY BEDSIDE NURSE FOR REFERENCE. PATIENT HAS CURRENT ANALY SCORE OF 17. PATIENT IS ABLE TO SELF TURN/REPOSITION SELF. ADMITTING DIAGNOSIS IS PNA, COPD EXACERBATION. HE ADMITS TO FALLING AT HOME RECENTLY, RENDERING HIM WITH MULTIPLE SKIN TEARS TO BUE. PATIENT IS NOTED TO HAVE A SKIN TEAR TO THE LEFT FOREARM, AND 3 TO THE RIGHT UPPER ARM. APPLIED THERAHONEY AND OPTIFOAM GENTLE DRESSINGS TO WOUNDS. RECOMMEND: Q 3 DAY/PRN DRESSING CHANGE TO ALL SKIN TEARS ON BILATERAL ARMS, SKIN/WOUND CARE PLAN, DIETARY CONSULT, CONTINUED MONITORING BY WOUND CARE TEAM. Addendum: 05/07/19 at 1453 by Tiny Pyle RN Amended: Links added.
--- NOTE | 2019-05-07 10:59 | NUR ---
Paged RT for breathing treatment.
--- NOTE | 2019-05-07 12:02 | NUR ---
Patient became confused. Patient alert and oriented x 2. Patient reoriented to time and place. Will continue to monitor.
[2019-05-07 12:30] VITALS: BP 145/73
--- NOTE | 2019-05-07 13:30 | NUR ---
Paged RT for breathing treatment
--- NOTE | 2019-05-07 13:30 | NUR ---
Dr. Marv bowles. Discussed POC with patient. aware of current A. fib
--- NOTE | 2019-05-07 14:20 | NUR ---
Patient states pain related to cough. Dr. Fair contacted and notified. New orders received, read back and verified.
[2019-05-07] MEDS ORDERED: guaiFENesin-DM 100/10mg/5ml SYR PO PRN (14:30)
[2019-05-07] MEDS: HYDROcodone-ACET 5/325MG TAB PO PRN (14:35)
--- NOTE | 2019-05-07 14:45 | NUR ---
Family no longer at bedside. Patient became confused again. Alert and oriented x 2. Patient reoriented to place and situation. Will continue to monitor.
[2019-05-07 17:20] VITALS: BP 134/84
[2019-05-07] MEDS: FUROSEMIDE 20 MG/2 ML VIAL IV SCH (17:43)
--- NOTE | 2019-05-07 17:48 | NUR ---
Patient became confused and angry. Patient oriented x2. Patient began picking at IV, and scab on arm. Patient refused to get back in bed. Patient transferred to sitter room for safety. Placed in bed, bed alarm on. Will continue to monitor.
--- NOTE | 2019-05-07 18:54 | NUR ---
RT NOTE PT WAS SEEN BY RT FOR HHN TX. PT TOLERATES WELL VIA MASK. NO ADVERSE REACTION NOTED. CONT ORDERED Addendum: 05/07/19 at 1854 by Jany Montiel RT Amended: Links added.
--- NOTE | 2019-05-07 19:15 | NUR ---
Closing note: Patient sitting in bed. No S/S of pain, distress or SOB at this time. Bed alarm on, sitter at bedside for patient safety. Care endorsed to [facility] NEVAEH Camacho,
--- NOTE | 2019-05-07 19:35 | NUR ---
Opening Shift Note Assumed care of patient, awake and alert, cooperative to care, with episode of confusion. No S/S of distress/SOB or pain. Instructed on POC and to call for assist PRN, patient verbalized understanding. Bed in lowest and locked position, sitter at bedside, will continue to monitor for changes Q1hr and PRN.
[2019-05-07 22:00] VITALS: BP 133/89
[2019-05-08] MEDS: ALBUTEROL SULF 2.5 MG/0.5ML(0.5%) NEB SOLN NEB PRN (02:08)
[2019-05-08] MEDS: IPRATROPIUM BROM 0.5 MG/2.5ML INH SOL NEB PRN (02:08)
[2019-05-08] MEDS: cefTRIAXone 1GM/50ML D5W 50 ML IV SCH (02:33)
[2019-05-08] MEDS: AZITHROMYCIN 500MG/ 250ML 250 ML IV SCH (03:20)
[2019-05-08 05:00] VITALS: BP 153/98
--- NOTE | 2019-05-08 05:30 | NUR ---
IV on RFA infiltrated. Removed with cather intact, patient tolerated well IV insertion IV access obtained, via clean sterile technique by inserting 22 gauge catheter at LFA after [1] attempt(s). IV secured properly. No trauma to site. Patient tolerated well. NOTE: []
[2019-05-08] MEDS: FUROSEMIDE 20 MG/2 ML VIAL IV SCH ×2 (06:08→18:21)
--- NOTE | 2019-05-08 06:50 | NUR ---
Patient accidentally pulled IV out when he was trying to use the bedside commode. Will reinsert later
--- NOTE | 2019-05-08 08:00 | NUR ---
Morning note patient resting in bed with even and unlabored respirations, no distress noted. Instructed patient on POC, fall precautions and to call for assistance as needed. Patient verbalized understanding, although frequent reorientation is needed. Patient is A&Ox2. Sitter at bedside for safety. Fall precautions in place with bed in lowest locked position with x2 side rails up and call light within reach. Will continue to monitor q1hr & PRN.
--- NOTE | 2019-05-08 09:06 | NUR ---
Respiratory note: ROUTINE PRN MN TX CHECK. HR 108, RR 20, POX 98% ON 4L NC, BREATH SOUNDS ARE COARSE. NO SOB OR DISTRESS NOTED AT THIS TIME. PT WAS NOTIFY TO HAVE RT PAGE FOR NEEDED TX.
[2019-05-08 09:24] VITALS: BP 142/76
--- NOTE | 2019-05-08 09:40 | NUR ---
was at bedside - Dr. Brett Fair
[2019-05-08] MEDS ORDERED: IOHEXOL 350 MG/ML 100ML IJ ONE ×2 (09:43→10:39)
[2019-05-08] MEDS: methylPREDNISolone SOD SUCC 125 MG/2 ML VL IV SCH (09:43)
[2019-05-08] MEDS: POTASSIUM CHL 20 Meq TABLET PO SCH (09:44)
--- NOTE | 2019-05-08 11:50 | NUR ---
US tech at bedside
--- NOTE | 2019-05-08 12:22 | NUR ---
Telephone consent obtained from patient's spouse, Diane Magallon. Consent witnessed by merlyn Khalil RN, and this RN. Called radiology to notify that consent has been signed and placed in the chart.
--- NOTE | 2019-05-08 13:57 | NUR ---
Visitors at bedside Diane, patient's spouse, at bedside. Updated on POC. Diane verbalized understanding. Patient resting in bed with even and unlabored respirations, no distress noted. Call light within reach. Sitter at bedside for safety.
[2019-05-08] MEDS ORDERED: ALBU0.084 NEB (14:11)
[2019-05-08] MEDS ORDERED: GABA100C9 PO (14:11)
[2019-05-08] MEDS ORDERED: BUDE2SUS3 IN (14:11)
[2019-05-08] MEDS ORDERED: HYDR50TA15 PO (14:11)
[2019-05-08] MEDS ORDERED: PANT40TA2 PO (14:31)
[2019-05-08] MEDS ORDERED: GABA300C10 PO (14:31)
[2019-05-08] MEDS ORDERED: ASPI-404 PO (14:31)
[2019-05-08] MEDS ORDERED: FURO1TAB33 PO (14:31)
[2019-05-08] MEDS ORDERED: APIX5TAB PO (14:31)
--- NOTE | 2019-05-08 14:35 | NUR ---
NUTRITION CONSULT/ASSESSMENT NOTES Please refer to link notes of nutrition screen form filed under the intervention section of the plan of care for further details. Est. Needs: 1850 kcal to 2150 kcal (30-35 kcal/kgBW), 73 gms to 88 gms pro (1.0-1.2 gms/kgBW). Will continue to monitor pertinent labs and reassess nutrient need prn Thank you for this consult. Addendum: 05/08/19 at [address] Amended: Links added.
--- NOTE | 2019-05-08 14:38 | NUR ---
Orders received and read back to verify Verified home medications with Dr. Brett Fair. verbalized understanding. Orders received and read back to verify.
[2019-05-08] MEDS ORDERED: DIGOXIN 0.125 MG TAB PO ONE (14:45)
[2019-05-08] MEDS: HYDROcodone-ACET 5/325MG TAB PO PRN ×2 (15:01→21:52)
[2019-05-08 15:03] VITALS: BP 146/78
[2019-05-08 16:33] VITALS: BP 140/76
--- NOTE | 2019-05-08 18:21 | NUR ---
Closing note patient sitting at bedside with both feet dangling, respirations even and unlabored, no distress noted. Sitter at bedside for safety. Call light within reach.
--- NOTE | 2019-05-08 18:40 | NUR ---
Patient off unit to ultrasound via personal motorized scooter. Respirations even and unlabored, no distress noted. Addendum: 05/08/19 at 1842 by Sanjuana Ashford RN disregard note. Incorrect patient.
--- NOTE | 2019-05-08 18:57 | NUR ---
Respiratory note: ASSESSED PT FOR PRN MED NEB TX. PT IS CURRENTLY ON 4 L/M NC: HR 125, RR 20, SPO2 97%. PT SHOWS NO S/S OF SOB OR RESPIRATORY DISTRESS. MED NEB TX NOT INDICATED AT THIS TIME. PT AWARE TO HAVE RT PAGED IF SOB OCCURS. WILL CONTINUE TO MONITOR.
--- NOTE | 2019-05-08 19:07 | NUR ---
Care endorsed to NEVAEH Olivares.
--- NOTE | 2019-05-08 19:40 | NUR ---
Opening Shift Note Assumed care of patient, awake and alert, oriented x 3, reoriented to situation. On oxygen at 4L via NC. No S/S of distress or SOB. Patient is able to turn in bed independently. Bed low locked position with side rails up x 2 and call light within reach, sitter at bedside. Instructed on POC and to call for assist PRN, will continue to monitor for changes Q1hr and PRN.
[2019-05-08 20:44] VITALS: BP 138/69
[2019-05-08] MEDS: GABAPENTIN 300 MG CAP PO SCH (21:21)
[2019-05-08] MEDS: DOXYCYCLINE 100 MG TAB/CAP PO SCH (21:21)
[2019-05-09] MEDS: cefTRIAXone 1GM/50ML D5W 50 ML IV SCH (02:58)
[2019-05-09 04:04] VITALS: BP 138/78
[2019-05-09] MEDS: FUROSEMIDE 20 MG/2 ML VIAL IV SCH (05:24)
--- NOTE | 2019-05-09 05:30 | NUR ---
IV removal IV DC'd with clean sterile technique, catheter fully intact. Pressure dressing applied to site. Patient tolerated well. NOTE: IV leaking left upper arm
[2019-05-09] MEDS: HYDROcodone-ACET 5/325MG TAB PO PRN (05:37)
--- NOTE | 2019-05-09 05:45 | NUR ---
IV insertion IV access obtained, via clean sterile technique by inserting 20 gauge catheter at left AC after 1 attempt(s). IV secured properly. No trauma to site. Patient tolerated well. NOTE:
--- NOTE | 2019-05-09 05:58 | NUR ---
PRN MED NEB TX NOT INDICATED. NO SIGNS OR SYMPTOMS OF RESPIRATORY DISTRESS NOTED. HR 86, RR 16, SPO2 98% ON 3 L NC, BS CLEAR. SITTER AT BEDSIDE. Respiratory note:
--- NOTE | 2019-05-09 06:58 | NUR ---
Closing Note patient resting in bed with oxygen on, even and unlabored respirations, no s/s of distress. Bed low locked position with side rails up x 2 and call light within reach,sitter at bedside.
--- NOTE | 2019-05-09 08:00 | NUR ---
Morning note patient resting in bed with even and unlabored respirations, no distress noted. Instructed patient on POC, fall precautions and to call for assistance as needed. Patient verbalized understanding, although frequent reorientation is needed. Patient is A&Ox1. Sitter at bedside for safety. Fall precautions in place with bed in lowest locked position with x2 side rails up and call light within reach. Will continue to monitor q1hr & PRN.
[2019-05-09 08:04] LABS: Hematocrit 37.7 % (41.0-53.0); Hemoglobin 12.4 g/dL (13.5-17.5); Mean Corpuscular Hemoglobin 29.6 pg (28.0-32.0); Mean Corpuscular Volume 89.7 fL (80.0-100.0); Platelet Count (auto) 385 10^3/uL (140-450); White Blood Cell 12.4 10^3/uL (4.4-10.8)
[2019-05-09 08:08] LABS: Band Neutrophils % (manual) 0; Basophils % (manual) 0 (0.0-2.0); Blast Cells 0; Eosinophils % (manual) 0 (0-7); Metamyelocytes % 0; Myelocytes % 0; Promyelocytes % 0; Reactive Lymphocytes 0
--- NOTE | 2019-05-09 08:15 | NUR ---
MD was at bedside - Dr. Brett Fair Discussed patient's status and POC with this RN.
--- NOTE | 2019-05-09 08:16 | NUR ---
Spoke with Dr. Gaffney Updated MD on patient's status. Order received and read back to verify. Notified Dr. Brett Fair. MD verbalized understanding.
[2019-05-09 08:21] LABS: Potassium 3.9 mmol/L (3.5-5.1)
[2019-05-09 08:25] LABS: BUN/Creatinine Ratio 34.9; Calcium 9.1 mg/dL (8.5-10.1)
--- NOTE | 2019-05-09 08:36 | NUR ---
RE: Labs Discussed recent lab results with Dr. Brett Fair. verbalized understanding.
--- NOTE | 2019-05-09 08:44 | NUR ---
RE: Breathing treatments Order received by Dr. Brett Fair and read back to verify RE: breathing treatment.
[2019-05-09 09:00] VITALS: BP 127/80
[2019-05-09] MEDS: IPRATROPIUM BROM 0.5 MG/2.5ML INH SOL NEB SCH ×4 (09:04→22:05)
[2019-05-09] MEDS: PANTOPRAZOLE 40 MG TAB PO SCH (09:14)
[2019-05-09] MEDS: GABAPENTIN 300 MG CAP PO SCH ×2 (09:14→22:05)
[2019-05-09] MEDS: methylPREDNISolone SOD SUCC 125 MG/2 ML VL IV SCH (09:14)
[2019-05-09] MEDS: POTASSIUM CHL 20 Meq TABLET PO SCH (09:15)
[2019-05-09] MEDS: DOXYCYCLINE 100 MG TAB/CAP PO SCH ×2 (09:15→22:04)
[2019-05-09] MEDS: DIGOXIN 0.125 MG TAB PO SCH (09:16)
[2019-05-09 11:17] LABS: Lymphocytes % (manual) 5 (10.0-50.0); Monocytes % (manual) 6 (0-12)
--- NOTE | 2019-05-09 11:30 | NUR ---
RE: Living situation/discharge plan Patient's daughter, Nina, at bedside. Jossie, social media intern at [facility], at bedside. Patient's mental status assessed by this RN. Patient is A&Ox4 at this time. Patient answered all questions appropriately. Patient stated "If that's what I need to do to get stronger then that's where I will go. I will get served meals?" Informed patient that meals and snacks will be provided and to to notify the appropriate personnel if meals are not served. Patient verbalized understanding. Patient's daughter, Nina, states "I bring up prepared food for the week and Diane (patient's ) doesn't serve it to him. Neither one of them can open containers. So he just doesn't eat or he will stand at the stove to cook food while wearing his oxygen. He's had multiple falls and Diane makes him get on the treadmill to workout. Diane also doesn't allow him to take all of his medications and doesn't let him have his breathing treatments. I'm very concerned about him." Jossie stated "We have called APS on Diane three times but she kicks them out of the house. Nothing has been done. Every time that he is willing to go to a board and care, Diane will tell him stuff and he changes his mind." Jossie and Nina report speaking with MAUDE Saez. Updated Nina on POC. Nina verbalized understanding.
--- NOTE | 2019-05-09 12:22 | NUR ---
RE: consent Patient verbalized understanding to scheduled procedure and order to obtain consent. Patient is A&Ox4 at this time and answering all questions appropriately. Patient's daughter, Nina, is at bedside. Patient requested Nina to sign consents due to generalized weakness and unable to sign his name. Consents placed in patient's hard chart.
[2019-05-09 13:00] VITALS: BP 119/66
--- NOTE | 2019-05-09 16:06 | NUR ---
assessment Patient is a 78 year old male who is alert and oriented. Prior to admission patient lived home with his Diane and functioned with assistance of [facility]. Per patient he will resume hospice with [facility] on discharge. Patient has home 02, fww, cane, and a wheelchair for home use. Patient feels safe returning home on discharge. Patients daughter is at bedside and is concerned about patients making decisions. I informed Nina that if patient agrees to his making decisions for him, then that is who will make decisions. Nina verbalized understanding. I informed patient he has a right to participate in any and all discharge planning. Patient does not have a POA and advanced directive. I have offered patient information on POA and advanced directives. I informed the patient the advantages and benefits of having an Advanced Directive. Patient verbalized understanding and agreed to discharge plan. Addendum: 05/09/19 at 1615 by Nadja POON Amended: Links added.
--- NOTE | 2019-05-09 17:00 | NUR ---
RE: Bladder scan This RN was notified by Dang, nursing home physician at bedside, that the patient was having difficulty urinating. Dang stated "He has said a few times that he needs to go to the bathroom but then nothing comes out." Abdomen assessed. Abdomen is distended and firm. Patient denies pain and/or the sensation to urinate. Bladder scan performed. >435ml urine found via bladder scanner. Patient informed this RN that he wanted to try to use the restroom. This RN scanned the patient's bladder after he urinated. >350ml found via bladder scanner. Patient educated on the retention of urine in the bladder and the intervention of inserting a Fatima catheter. Patient verbalized understanding and refused to have catheter inserted. Patient stated "I got one of those put in when I came out of surgery down in [place] and over my body will I have another one put in." Informed patient of the risks of retaining urine. Patient verbalized understanding. Patient is A&Ox4. Family at bedside. Called Dr. Brett Fair to notify. No answer. Voicemail left for
--- NOTE | 2019-05-09 17:32 | NUR ---
Paged on-call hospitalist RE: Bladder scan results Dr. Brett Fair returned this RN's call while this RN was the off unit. Message was left by MD for this RN to page on-call hospitalist. Paul Martinez N.P., paged to notify .
--- NOTE | 2019-05-09 17:36 | NUR ---
Updated Paul Martinez N.P., RE: bladder scan results Order received and read back to verify.
[2019-05-09] MEDS: ALBUTEROL SULF 2.5 MG/0.5ML(0.5%) NEB SOLN NEB PRN ×2 (18:07→22:05)
[2019-05-09] MEDS: TAMSULOSIN HYDROCHLORIDE 0.4 MG CAP PO SCH (18:19)
[2019-05-09] MEDS: FUROSEMIDE 40 MG/4 ML VIAL IV SCH (18:29)
--- NOTE | 2019-05-09 19:30 | NUR ---
Closing note patient resting in bed with even and unlabored respirations, no distress noted. Sitter at bedside for safety. Call light within reach. Patient denies abdominal pain/discomfort.
--- NOTE | 2019-05-09 19:40 | NUR ---
Opening Shift Note Assumed care of patient, awake and alert, oriented x 3, reoriented to time and situation, patient follows direction, clear speech. On oxygen at 3L via NC, with even and unlabored respirations. No S/S of distress or SOB. Patient is able to turn in bed independently. PIV left AC 20g intact and patent. Patient using urinal to void, no problems voiding at this time, patient has voided 325ml since 1844. Bed low locked position with side rails up x 2 and call light within reach, sitter at bedside. Instructed on POC and to call for assist PRN, will continue to monitor for changes Q1hr and PRN.
--- NOTE | 2019-05-09 21:45 | NUR ---
Wound care done dressing changes done per orders. patient tolerated well.
[2019-05-09 22:09] VITALS: BP 125/83
[2019-05-10] MEDS ORDERED: SODIUM CHLORIDE 0.9% 1,000 ML IV SCH ×2 (00:01→11:16)
[2019-05-10] MEDS: HYDROcodone-ACET 5/325MG TAB PO PRN ×2 (00:35→22:48)
[2019-05-10 01:41] VITALS: BP 125/83
[2019-05-10] MEDS: IPRATROPIUM BROM 0.5 MG/2.5ML INH SOL NEB SCH ×6 (02:34→22:20)
[2019-05-10] MEDS: cefTRIAXone 1GM/50ML D5W 50 ML IV SCH (02:55)
[2019-05-10 05:17] VITALS: BP 129/83
[2019-05-10] MEDS: ALBUTEROL SULF 2.5 MG/0.5ML(0.5%) NEB SOLN NEB PRN ×2 (05:59→14:18)
[2019-05-10] MEDS: FUROSEMIDE 40 MG/4 ML VIAL IV SCH (06:01)
[2019-05-10 06:36] LABS: Basophils # (auto) 0 uL; Basophils % (auto) 0.3 % (0.0-2.0); Eosinophils # (auto) 0 uL; Hematocrit 35.5 % (41.0-53.0); Hemoglobin 11.5 g/dL (13.5-17.5); Lymphocytes # (auto) 0.6 uL; Lymphocytes % (auto) 6.8 % (10.0-50.0); Mean Corpuscular Hemoglobin 29.1 pg (28.0-32.0); Mean Corpuscular Hgb Conc. 32.4 g/dL (32.0-36.0); Monocytes # (auto) 0.7 uL; Monocytes % (auto) 7.6 % (0.0-12.0); Neutrophils # (auto) 8.1 uL; Neutrophils % (auto) 85.3 % (37.0-80.0); Platelet Count (auto) 340 10^3/uL (140-450); Red Blood Cells 3.94 10^6/uL (4.5-5.90); Red Cell Distribution Width 15.8 % (11.8-14.3); White Blood Cell 9.5 10^3/uL (4.4-10.8)
[2019-05-10 06:47] LABS: INR 1.15 (0.9-1.15); Partial Thromboplastin Time 24.8 sec (23.64-32.05)
[2019-05-10 06:51] LABS: Potassium 4.1 mmol/L (3.5-5.1)
[2019-05-10 06:59] LABS: Calcium 8.7 mg/dL (8.5-10.1)
[2019-05-10] MEDS ORDERED: LIDOCAINE 2%HCL (LOCAL ANESTH.) INJ 20ML MDV ONE (08:16)
[2019-05-10] MEDS ORDERED: IOHEXOL 350 MG/ML 100ML IJ ONE ×2 (08:16→08:51)
[2019-05-10] MEDS ORDERED: SODIUM CHL 0.9% 50 ML ONE (08:44)
[2019-05-10] MEDS ORDERED: ANGIOMAX 250 MG VIAL IV ONE (08:44)
[2019-05-10] MEDS ORDERED: fentaNYL CITRATE 100 MCG/2 ML VL ONE (08:44)
[2019-05-10] MEDS ORDERED: MIDAZOLAM HCL 1MG/1ML-2 ML VIAL ONE (08:44)
--- NOTE | 2019-05-10 09:00 | NUR ---
PATIENT IN PROCEDURE FOR 0900 VITALS
[2019-05-10] MEDS: DOXYCYCLINE 100 MG TAB/CAP PO SCH ×2 (10:00→21:11)
[2019-05-10] MEDS: PANTOPRAZOLE 40 MG TAB PO SCH (10:00)
[2019-05-10] MEDS: POTASSIUM CHL 20 Meq TABLET PO SCH (10:00)
[2019-05-10] MEDS: methylPREDNISolone SOD SUCC 125 MG/2 ML VL IV SCH (10:00)
[2019-05-10] MEDS: DIGOXIN 0.125 MG TAB PO SCH (10:00)
[2019-05-10] MEDS: GABAPENTIN 300 MG CAP PO SCH ×2 (10:00→21:11)
--- NOTE | 2019-05-10 10:05 | NUR ---
Respiratory note: UNABLE TO GIVE SCHEDULED 1000 MEDNEB TX, PT NOT IN ROOM, AT A PROCEDURE AT THIS TIME. WILL RETURN FOR NEXT SCHEDULED TX.
[2019-05-10] MEDS ORDERED: CLOPIDOGREL 300 MG TAB ONE (10:36)
[2019-05-10] MEDS ORDERED: ASPirin 325 MG TAB ONE (10:37)
[2019-05-10 13:00] VITALS: BP 141/78
[2019-05-10] MEDS: TAMSULOSIN HYDROCHLORIDE 0.4 MG CAP PO SCH (17:38)
--- NOTE | 2019-05-10 20:05 | NUR ---
Opening Shift Note Assumed care of patient, awake and alert, oriented x 3, reoriented to situation, patient follows direction, clear speech. On oxygen at 2L via NC, with even and unlabored respirations. No S/S of distress or SOB. Patient is s/p LHC, positive tissue perfusion to bilateral lower extremities, catheter site to right groin clean, dry, intact, no bleeding, no hematoma soft upon palpation. Patient is able to turn in bed independently. Bed low locked position with side rails up x 2 and call light within reach, sitter at bedside. Instructed on POC and to call for assist PRN, will continue to monitor for changes Q1hr and PRN. Addendum: 05/11/19 at 0123 by Elise Shepard RN RN per sitter, IV was found out of patients arm, dressing still intact. IV catheter fully intact. No bleeding noted.
--- NOTE | 2019-05-10 20:30 | NUR ---
IV insertion IV access obtained, via clean sterile technique by inserting 22 gauge catheter at left upper arm after 1 attempt(s). IV secured properly. No trauma to site. Patient tolerated well. NOTE:
[2019-05-10] MEDS: CARVEDILOL 3.125 MG TAB PO SCH (21:12)
[2019-05-10] MEDS: ATORVASTATIN 20 MG TAB PO SCH (21:13)
[2019-05-10 22:00] VITALS: BP 151/84
[2019-05-11] MEDS: IPRATROPIUM BROM 0.5 MG/2.5ML INH SOL NEB SCH ×7 (02:09→22:10)
[2019-05-11] MEDS: cefTRIAXone 1GM/50ML D5W 50 ML IV SCH (03:33)
[2019-05-11 05:00] VITALS: BP 140/86
--- NOTE | 2019-05-11 07:06 | NUR ---
Closing Note patient resting in bed with oxygen on, even and unlabored respirations, no s/s of distress. Dressing to right groin clean, dry and intact. Bed low locked position with side rails up x 2 and call light within reach,sitter at bedside. Endorsed care to dayshift RN.
--- NOTE | 2019-05-11 07:20 | NUR ---
Opening Shift Note Assumed care of patient. At this time patient is very sleepy a change from yesterday as far as responsiveness to my questions. Heart rate is high jumping from 114-172 unsteady and very tachy with AFIB. No S/S of distress/SOB or pain. Instructed on POC, will continue to monitor for changes Q1hr and PRN.
--- NOTE | 2019-05-11 07:37 | NUR ---
INFORMED DR CANCINO OF PATIENTS HEART RATE. ORDERS RECEIVED FROM DR CANCINO TO GIVE CARDIZEM 10 MG IV ONCE. PATIENT IS ON TELE AND I WILL CONTINUE TO MONITOR HEART RATE. DR FRIED ALSO MADE AWARE OF CHANGE IN SLEEPINESS AND INCREASED HEART RATE. HE IS CURRENTLY AT NURSING STATION. Addendum: 05/11/19 at 0916 by Esperanza Jaramillo RN RN INFORMED DR CANCINO OF PATIENTS HEART RATE. ORDERS RECEIVED FROM DR CANCINO TO GIVE CARDIZEM 10 MG IV ONCE. PATIENT IS ON TELE AND I WILL CONTINUE TO MONITOR HEART RATE. DR FRIED ALSO MADE AWARE OF CHANGE IN SLEEPINESS AND INCREASED HEART RATE. HE IS CURRENTLY AT NURSING STATION. BP 144/98 HR 164
[2019-05-11] MEDS ORDERED: DILTIAZEM HCL 25 MG/5 ML VIAL IV ONE (07:45)
--- NOTE | 2019-05-11 08:30 | NUR ---
PATIENTS HEART RATE IS 97-109.
[2019-05-11 09:00] VITALS: BP 140/77
[2019-05-11 09:36] LABS: Basophils # (auto) 0 uL; Basophils % (auto) 0.2 % (0.0-2.0); Eosinophils # (auto) 0 uL; Eosinophils % (auto) 0.2 % (0.0-7.0); Hematocrit 43.6 % (41.0-53.0); Lymphocytes % (auto) 8.4 % (10.0-50.0); Mean Corpuscular Hemoglobin 29.3 pg (28.0-32.0); Mean Corpuscular Hgb Conc. 32.1 g/dL (32.0-36.0); Mean Corpuscular Volume 91.2 fL (80.0-100.0); Monocytes # (auto) 0.9 uL; Monocytes % (auto) 6.9 % (0.0-12.0); Neutrophils # (auto) 10.5 uL; Neutrophils % (auto) 84.3 % (37.0-80.0); Platelet Count (auto) 392 10^3/uL (140-450); Red Blood Cells 4.78 10^6/uL (4.5-5.90); Red Cell Distribution Width 16.3 % (11.8-14.3); White Blood Cell 12.4 10^3/uL (4.4-10.8)
[2019-05-11 09:51] LABS: Albumin 2.8 g/dL (3.4-5.0); Calcium 9.2 mg/dL (8.5-10.1); Potassium 4.6 mmol/L (3.5-5.1)
[2019-05-11 09:54] LABS: BUN/Creatinine Ratio 30.4; Bilirubin, Total 0.4 mg/dL (0.2-1.0); Total Protein 7.6 g/dL (6.4-8.2)
[2019-05-11] MEDS ORDERED: FUROSEMIDE 20 MG TAB PO SCH (10:00)
[2019-05-11] MEDS: PANTOPRAZOLE 40 MG TAB PO SCH (10:14)
[2019-05-11] MEDS: POTASSIUM CHL 20 Meq TABLET PO SCH (10:14)
[2019-05-11] MEDS: methylPREDNISolone SOD SUCC 125 MG/2 ML VL IV SCH (10:14)
[2019-05-11] MEDS: CLOPIDOGREL BISULFATE 75 MG TAB PO SCH (10:14)
[2019-05-11] MEDS: GABAPENTIN 300 MG CAP PO SCH ×2 (10:15→21:59)
[2019-05-11] MEDS: ASPirin 81 mg TAB PO SCH (10:15)
[2019-05-11] MEDS: FUROSEMIDE 20 MG TAB PO SCH ×2 (10:15→18:10)
[2019-05-11] MEDS: DIGOXIN 0.125 MG TAB PO SCH (10:15)
[2019-05-11] MEDS: CARVEDILOL 3.125 MG TAB PO SCH ×2 (10:16→21:58)
[2019-05-11] MEDS: DOXYCYCLINE 100 MG TAB/CAP PO SCH ×2 (10:16→21:59)
[2019-05-11] MEDS: LISINOPRIL 5 MG TAB PO SCH (10:16)
[2019-05-11 13:00] VITALS: BP 121/76
--- NOTE | 2019-05-11 15:06 | NUR ---
Nutrition Follow-up Notes Wt.: 59.0 kg as of yesterday. Pt's on oxygen via nasal cannula, asleep, no immediate family member at bedside during rounds this morning. Pt's PTCA and stenting of the LAD, left heart catheterization, and bilateral cine coronary angiography yesterday. Noted pt's confused, very sleepy, per nursing, currently on Regular diet, no record of PO intake yet at this time. Est. Needs: 1850 kcal to 2150 kcal (30-35 kcal/kgBW), 73 gms to 88 gms pro (1.0-1.2 gms/kgBW). Will continue to monitor pertinent labs and reassess nutrient need prn Labs: CO2 37 H, BUN 34 H, Alb 2.8 L Skin: Kemal scale 20,low risk, pt's multiple skin tears, right forearm, arms per nuclear radiation engineer. Pls refer to latest early childhood aide classroom's notes for further details re: tx plans. GI: Pt had 1 BM 05/09/19 per nuclear radiation engineer. PES: Increased nutrient needs r/t acute/chronic medical condition aeb 84% IBW, BMI 19.9 kg/m2, decreased muscle mass, hx of wt loss <75% consumed meals, wound healing. Altered nutrition related lab values r/t current/chronic medical condition aeb hyperglycemia, hypercapnia, elev. BUN and mod hypoalbuminemia Will continue to monitor PO intake, skin status, pertinent labs and weight trend. F/u in 3 to 5 days. Rec.: 1.) Pls enter order for Ensure Enlive 1 carton TID, daily MVI with minerals and Asc acid 500 mgs BID, already e-signed approved by . 2.) Continue close supervision and feeding assistance prn during meals. 3.) If Albumin continues trending down, consider Prostat 1 pkt BID. 4.) Refer pt to CDE/RD for further nutrition education and weight monitoring upon discharge. 5.) Continue current plan of care.
[2019-05-11 17:00] VITALS: BP 117/91
--- NOTE | 2019-05-11 17:13 | NUR ---
CARE ENDORSED TO PRINCE HERRING ALL DRESSINGS CHANGED
[2019-05-11] MEDS: TAMSULOSIN HYDROCHLORIDE 0.4 MG CAP PO SCH (18:10)
[2019-05-11] MEDS: ALBUTEROL SULF 2.5 MG/0.5ML(0.5%) NEB SOLN NEB PRN (18:41)
--- NOTE | 2019-05-11 19:50 | NUR ---
Opening Shift Note Assumed care of patient, awake and alert, oriented x 3, reoriented to time, patient follows direction, clear speech. On oxygen at 2L via NC, with even and unlabored respirations. No S/S of distress or SOB. Patient is able to turn in bed independently. Patient on tele monitor 31 A.Fib HR 101. Bed low locked position with side rails up x 2 and call light within reach, sitter at bedside. Instructed on POC and to call for assist PRN, will continue to monitor for changes Q1hr and PRN.
[2019-05-11] MEDS: ATORVASTATIN 20 MG TAB PO SCH (21:58)
[2019-05-12] MEDS: IPRATROPIUM BROM 0.5 MG/2.5ML INH SOL NEB SCH ×4 (02:02→14:00)
[2019-05-12] MEDS: ALBUTEROL SULF 2.5 MG/0.5ML(0.5%) NEB SOLN NEB PRN (02:02)
[2019-05-12] MEDS: cefTRIAXone 1GM/50ML D5W 50 ML IV SCH (03:21)
[2019-05-12 05:56] VITALS: BP 112/73
[2019-05-12] MEDS: FUROSEMIDE 20 MG TAB PO SCH (06:15)
--- NOTE | 2019-05-12 06:56 | NUR ---
Closing Note patient resting in bed with oxygen on, even and unlabored respirations, no s/s of distress. Bed low locked position with side rails up x 2 and call light within reach,sitter at bedside. Addendum: 05/12/19 at 0656 by Elise Shepard RN RN patient on tele monitor #31 afib HR 86.
[2019-05-12 09:00] VITALS: BP 110/67
[2019-05-12] MEDS: ASPirin 81 mg TAB PO SCH (09:43)
[2019-05-12] MEDS: methylPREDNISolone SOD SUCC 125 MG/2 ML VL IV SCH (09:43)
[2019-05-12] MEDS: POTASSIUM CHL 20 Meq TABLET PO SCH (09:44)
[2019-05-12] MEDS: CARVEDILOL 3.125 MG TAB PO SCH (09:44)
[2019-05-12] MEDS: DOXYCYCLINE 100 MG TAB/CAP PO SCH (09:45)
[2019-05-12] MEDS: CLOPIDOGREL BISULFATE 75 MG TAB PO SCH (09:45)
[2019-05-12] MEDS: GABAPENTIN 300 MG CAP PO SCH (09:45)
[2019-05-12] MEDS: PANTOPRAZOLE 40 MG TAB PO SCH (09:45)
[2019-05-12] MEDS: DIGOXIN 0.125 MG TAB PO SCH (09:45)
[2019-05-12] MEDS: LISINOPRIL 5 MG TAB PO SCH (09:46)
[2019-05-12] MEDS ORDERED: DILTIAZEM HCL 120MG ER CAP PO SCH (10:00)
--- NOTE | 2019-05-12 10:27 | NUR ---
RECEIVED CALL FROM TELE MONITOR, PT HR WENT UP TO 172 AND IS A FIB/ A FLUTTER. ASSESSED PT PT REPORTS 5/10 PAIN IN [place]. PT REPORTS HE FEELS OKAY OTHER THAN THAT, HR 138. CALLED AND SPOKE WITH DR FRIED, NOTIFIED . AWARE, NEW ORDERS FOR DILTIAZEM 10 MG IV NOW AND CONTINUE DC.
[2019-05-12] MEDS ORDERED: DILTIAZEM HCL 25 MG/5 ML VIAL IV ONE (10:30)
[2019-05-12] MEDS: HYDROcodone-ACET 5/325MG TAB PO PRN (10:44)
--- NOTE | 2019-05-12 11:36 | NUR ---
FAMILY REPORTS PT IS ALREADY SET UP WITH [facility], THEY SPOKE WITH [facility] TODAY AND CONFIRMED. FAMILY REPORTS THEY WILL TRANSPORT PATIENT TO [facility] AND BROUGHT OXYGEN FOR TRANSPORT. JAMILAH CASILLAS NOTIFIED, JAMILAH REPORTS PT IS OKAY TO IN.
--- NOTE | 2019-05-12 11:41 | NUR ---
TELE MONITOR CALLED. PT HR 243 BPM AND RUNNING V TACH. REASSESSED HR AND PATIENT, PT RECEIVING BREATHING TX AND PERCUSSION THERAPY. HR 110. PT REPORTS HE FEELS, "FINE." CALLED AND NOTIFIED DR FRIED. NEW ORDERS FOR LABETALOL 10 MG IV ONCE AND CONTINUE DC.
[2019-05-12] MEDS ORDERED: LABETALOL HCL 5 MG/ML 4ML SYRINGE IV ONE (11:45)
--- NOTE | 2019-05-12 12:30 | NUR ---
PT BP NOW 87/54, HR 64. PT REPORTS NO DIZZINESS OR FATIGUE, 02 96%. NOTIFIED DR FARIHA MD AWARE, NO NEW ORDERS.
--- NOTE | 2019-05-12 13:58 | NUR ---
Discharge instructions given as ordered. Encourage to follow up with PMD as instructed. All questions and concerns addressed. Patient verbalized understanding. Medication reconciliation form completed and copy given to patient. Needed vaccines given. IV removed with catheter intact, pressure dressing applied. Telemetry unit returned to ICU. Patient taken to vehicle via wheelchair with all personal belongings, accompanied by staff and family members. No distress noted at time of departure.
== END 2019-05-12 13:00 | disposition hospice, home (50) | DRG 246 ==
LOC: ER 18:54 → EDBD 18:54 → TELE 18:55 → TELE-CENTR 05-07 01:44
PROVIDERS: ADMIT Hospitalist; ATTEND Family Medicine
PROC: 027034Z Dilation of Coronary Artery, One Artery with Drug-eluting Intraluminal Device, Percutaneous Approach (ICD-10-PCS; principal; 2019-05-10)
PROC: 4A023N7 Measurement of Cardiac Sampling and Pressure, Left Heart, Percutaneous Approach (ICD-10-PCS; 2019-05-10)
PROC: B2111ZZ Fluoroscopy of Multiple Coronary Arteries using Low Osmolar Contrast (ICD-10-PCS; 2019-05-10)
PROC: B2151ZZ Fluoroscopy of Left Heart using Low Osmolar Contrast (ICD-10-PCS; 2019-05-10)
DX: I25.10 Atherosclerotic heart disease of native coronary artery without angina pectoris (principal); J96.20 Acute and chronic respiratory failure, unspecified whether with hypoxia or hypercapnia; J43.9 Emphysema, unspecified; I11.0 Hypertensive heart disease with heart failure; Z99.81 Dependence on supplemental oxygen; I50.9 Heart failure, unspecified; R73.9 Hyperglycemia, unspecified; Z23 Encounter for immunization
CPT/HCPCS: 36415; 71045; 71275; 80048; 80053; 81001; 82565; 83605; 83735; 83880; 84443; 84484; 85007; 85025; 85027; 85379; 85610; 85730; 86850; 86900; 86901; 87040; 87081; 87804; 93005; 93970; 94640; 94668; 96374; 96375; C1887; G0378; J0696; J2250; J3490

== ENCOUNTER 2019-05-25 19:46 | Inpatient (IN) | payer OTHER ==
[~2019-05-25] VITALS: Ht 175.3 cm; Wt 62.2 kg
[2019-05-25] MEDS: NOREPINEPHRINE 8 MG/250ML KIT 250 ML IV SCH (01:51)
[~2019-05-25 19:46] MED LIST changes: +ALBU0.084 NEB; -ALBUAER3 IN; +APIX5TAB PO; +ASPI-404 PO; +BUDE2SUS3 IN; -DILT1CAP77 PO; -DOXY-286 PO; -FLUC200T35 PO; +FURO1TAB33 PO; -GABA100C9 PO; +GABA300C10 PO; +HYDR50TA15 PO; -ROFL1TAB2 PO
[2019-05-25] MEDS ORDERED: ALBUTEROL SULF 2.5 MG/0.5ML(0.5%) NEB SOLN NEB STA (19:55)
[2019-05-25] MEDS ORDERED: fentaNYL Drip 2500mCg/250mlNS 250 ML IV SCH (19:57)
[2019-05-25] MEDS ORDERED: SUCCINYLCHOLINE CHLORIDE 20 MG/ML 10ML VIAL IV ONE (20:00)
[2019-05-25] MEDS ORDERED: IPRATROPIUM BROM 0.5 MG/2.5ML INH SOL NEB ONE (20:00)
[2019-05-25] MEDS ORDERED: ETOMIDATE (2MG/ML) 20ML VIAL IV ONE (20:00)
[2019-05-25] MEDS ORDERED: SODIUM CHLORIDE 0.9% 1,000 ML IV ONE ×2 (20:00→20:45)
[2019-05-25] MEDS ORDERED: MIDAZOLAM DRIP 50 mg/50mL 50 ML IV ONE (20:20)
[2019-05-25 20:24] LABS: Basophils # (auto) 0 uL; Eosinophils # (auto) 0 uL; Eosinophils % (auto) 0.1 % (0.0-7.0)
[2019-05-25 20:25] LABS: Basophils % (auto) 0.2 % (0.0-2.0); Hematocrit 43.8 % (41.0-53.0); Lymphocytes % (auto) 5.9 % (10.0-50.0); Mean Corpuscular Hemoglobin 29.2 pg (28.0-32.0); Mean Corpuscular Hgb Conc. 31.9 g/dL (32.0-36.0); Mean Corpuscular Volume 91.4 fL (80.0-100.0); Monocytes # (auto) 0.4 uL; Monocytes % (auto) 2.4 % (0.0-12.0); Neutrophils # (auto) 15.9 uL; Neutrophils % (auto) 91.4 % (37.0-80.0); Platelet Count (auto) 460 10^3/uL (140-450); Red Cell Distribution Width 15.8 % (11.8-14.3); White Blood Cell 17.4 10^3/uL (4.4-10.8)
[2019-05-25] MEDS: MIDAZOLAM DRIP 50 mg/50mL 50 ML IV SCH (20:25)
[2019-05-25 20:42] LABS: Albumin 2.4 g/dL (3.4-5.0); Anion Gap 7 (5-15); Blood Urea Nitrogen 35 mg/dL (7-18); Calcium 8.8 mg/dL (8.5-10.1); Carbon Dioxide 36 mmol/L (21-32); Chloride 93 mmol/L (98-107); Glucose 191 mg/dL (74-106); Potassium 5.1 mmol/L (3.5-5.1); Sodium 136 mmol/L (136-145)
[2019-05-25 20:43] LABS: INR 1.22 (0.9-1.15); Partial Thromboplastin Time 28.5 sec (23.64-32.05)
[2019-05-25 20:44] LABS: Alanine Aminotransferase 25 U/L (16-61); Aspartate Aminotransferase 24 U/L (15-37); GFR African American 55 mL/min; GFR Non-African American 45 mL/min
[2019-05-25] MEDS ORDERED: MIDAZOLAM HCL 1MG/1ML-2 ML VIAL IV ONE (20:45)
[2019-05-25 20:46] LABS: Lactic Acid w/Reflex 3.2 mmol/L (0.4-2.0)
[2019-05-25 20:47] LABS: Alkaline Phosphatase 150 U/L (45-117); Bilirubin, Total 0.5 mg/dL (0.2-1.0); Total Protein 8.1 g/dL (6.4-8.2)
[2019-05-25] MEDS ORDERED: cefTRIAXone 1GM/50ML D5W 50 ML IV ONE (20:55)
[2019-05-25] MEDS ORDERED: VANCOMYCIN 1GM/250ML 250 ML IV ONE (21:30)
[2019-05-25 22:15] VITALS: BP 128/52
[2019-05-25] MEDS ORDERED: NITROGLYCERIN 0.4 MG SL TAB SL PRN (22:30)
[2019-05-25] MEDS ORDERED: ONDANSETRON HCL 4 MG/2 ML VIAL IV PRN (22:30)
[2019-05-25] MEDS ORDERED: SODIUM CHLORIDE 0.9% 1,000 ML IV SCH (22:30)
[2019-05-25] MEDS ORDERED: VANCOMYCIN PER PHARMACY 0 MG IV SCH (22:30)
[2019-05-25] MEDS ORDERED: ACETAMINOPHEN 325 MG TAB PO PRN (22:30)
[2019-05-25] MEDS ORDERED: MORPHINE SULF INJ 2 MG/ML SYRINGE 1ML IV PRN (22:30)
[2019-05-25 22:44] LABS: Urine Bacteria FEW /hpf (None Seen); Urine Blood 2+ /uL (Negative); Urine Hyaline Cast FEW /lpf (0 - 2); Urine Specific Gravity 1.016 (1.001-1.035); Urine WBC 4 /hpf (0 - 3)
[2019-05-25 22:48] LABS: Lactic Acid w/Reflex 3.3 mmol/L (0.4-2.0)
[2019-05-25 23:40] VITALS: BP 128/52
[2019-05-25] MEDS: IPRATROPIUM BROM 0.5 MG/2.5ML INH SOL NEB SCH (23:45)
[2019-05-25] MEDS: ALBUTEROL SULF 2.5 MG/0.5ML(0.5%) NEB SOLN NEB SCH (23:46)
[2019-05-26] VITALS (53 sets, daily range): BP systolic 82–150; BP diastolic 39–79
[2019-05-26] MEDS: PIPERACILLIN-TAZOB 3.375GM 100 ML IV SCH ×4 (00:30→17:52)
[2019-05-26] MEDS: SODIUM CHLORIDE 0.9% 1,000 ML IV SCH ×3 (00:45→20:45)
[2019-05-26] MEDS ORDERED: SODIUM CHLORIDE 0.9% 500 ML IV ONE (00:45)
[2019-05-26] MEDS ORDERED: NOREPINEPHRINE 8 MG/250ML KIT 250 ML IV ONE (01:35)
[2019-05-26] MEDS: PROPOFOL 100 ML IV SCH ×2 (02:44→19:57)
[2019-05-26 04:23] LABS: Basophils # (auto) 0 uL; Basophils % (auto) 0.2 % (0.0-2.0); Eosinophils # (auto) 0.1 uL; Hematocrit 35.8 % (41.0-53.0); Lymphocytes # (auto) 0.9 uL; Lymphocytes % (auto) 6.1 % (10.0-50.0); Mean Corpuscular Hgb Conc. 30.8 g/dL (32.0-36.0); Mean Corpuscular Volume 94.1 fL (80.0-100.0); Monocytes # (auto) 0.5 uL; Monocytes % (auto) 3.6 % (0.0-12.0); Neutrophils # (auto) 13.5 uL; Neutrophils % (auto) 89.1 % (37.0-80.0); Nucleated Red Blood Cells % 0.2 %; Platelet Count (auto) 363 10^3/uL (140-450); Red Cell Distribution Width 16.5 % (11.8-14.3); White Blood Cell 15.2 10^3/uL (4.4-10.8)
[2019-05-26 04:43] LABS: Potassium 3.8 mmol/L (3.5-5.1)
[2019-05-26 04:49] LABS: Albumin 1.7 g/dL (3.4-5.0); BUN/Creatinine Ratio 31.3; Bilirubin, Total 0.4 mg/dL (0.2-1.0); Calcium 8.1 mg/dL (8.5-10.1); Total Protein 5.8 g/dL (6.4-8.2)
[2019-05-26] MEDS: ALBUTEROL SULF 2.5 MG/0.5ML(0.5%) NEB SOLN NEB SCH ×3 (06:34→18:00)
[2019-05-26] MEDS: IPRATROPIUM BROM 0.5 MG/2.5ML INH SOL NEB SCH ×3 (06:34→18:00)
--- NOTE | 2019-05-26 07:06 | NUR ---
Respiratory note: ABG VALUES READ BACK TO BREAD PANNER MAYER. FIO2 INCREASED FROM 40% FIO2, TO 50% FIO2 PER BREAD PANNER MAYER VERBAL ORDER. WILL CONTINUE TO MONITOR PT.
[2019-05-26] MEDS: fentaNYL Drip 2500mCg/250mlNS 250 ML IV SCH (08:09)
[2019-05-26] MEDS ORDERED: ENOXAPARIN SOD 40 MG/0.4 ML SYRINGE SC SCH (10:00)
[2019-05-26] MEDS: PANTOPRAZOLE 40 MG/10 ML VIAL INJ IV SCH (10:15)
[2019-05-26] MEDS: VANCOMYCIN 1GM/250ML 250 ML IV SCH (11:28)
[2019-05-26] MEDS: MIDAZOLAM DRIP 50 mg/50mL 50 ML IV SCH (12:10)
--- NOTE | 2019-05-26 12:30 | NUR ---
OPENING NOTE RECEIVED PT FROM SATYA HERRING PT IS INTUBATED ON A/C 12, TV 550, FI02 35%, PEEP 6, SIZE 8 ET TUBE, 24@THE LIP. VS: HR 109, RR 16, BP 110/63, 98%O2SAT. PT IS SEDATED WITH VERSED 2, LEVO 4, AND FENTANYL 35. IV LINES WITH LEFT AC 20 GAUGE AND A RIGHT WRIST 20 GAUGE. BED IN LOWEST POSITION.
--- NOTE | 2019-05-26 14:08 | NUR ---
WOUND CARE NOTE: Wound care in to see patient per bedside nurse's request due to intubation status and skin integrity issue that are noted present on admission. Patient is 78 years old male with admitting diagnosis of Acute Resp Failure, Sepsis. Patient with history of COPD,emphysema, CHF. Patient is resting in ICU bed in Rm. 111. He's intubated, sedated and mechanically ventilated. Patient appears to be in no pain using Lewis [place] Faces Pain Scale. Skin/wound assessment done with the assistance of patient's nurse, NEVAEH Lyon. Noted intact ecchymosis to patient's bilateral arm. Patient's Rt. and Lt sacrum noted with non-blanchable redness (Stage 1 pressure injury). Staff initiated cleaning and application of Z Guard cream to sacrum with application of Opti foam sacral dressing per MD order. Repositioned patient for comfort facing his Lt side, redistributed pressure points with pillows. Patient tolerated well. NEVAEH Lyon at bedside. RECOMMENDATION: Nursing to continue with BID/PRN Cleaning and application of Z Guard cream to sacral, buttocks per MD order, Dietary consult , frequent turning and repositioning schedule as condition permits, redistribute pressure points with pillows, elevate heels on pillows, continue monitoring by wound care while patient is hospitalized. Addendum: 05/26/19 at 1744 by Merna Covington RN Amended: Links added.
[2019-05-26] MEDS ORDERED: ASPirin-EC 81 mg tab PO ONE (15:30)
[2019-05-26] MEDS ORDERED: methylPREDNISolone SOD SUCC 40 MG/ML VL IM ONE (15:30)
[2019-05-26] MEDS ORDERED: LACTULOSE 20Gm/30ML SOLN PO PRN (15:30)
[2019-05-26] MEDS ORDERED: CLOPIDOGREL BISULFATE 75 MG TAB PO ONE (15:30)
--- NOTE | 2019-05-26 15:51 | NUR ---
PT UNABLE TO GO TO CT AT THIS TIME. PT SBP IS 82. TITRATING LEVOPHED. RT UNAVAILABLE AT THIS TIME FOR VENT TRANSFER. MATT HERRING CHARGE AWARE. ALSO NEED TO OBTAIN CONSENTS FROM FAMILY FOR CT
--- NOTE | 2019-05-26 18:10 | NUR ---
YVAN HERRING AT BEDSIDE TO INSERT PICC LINE CONSENT SIGNED BY
--- NOTE | 2019-05-26 19:10 | NUR ---
CLOSING NOTE SHIFT REPORT GIVEN AND CARE ENDORSED TO DARRYL HERRING
--- NOTE | 2019-05-26 19:47 | NUR ---
PICC line placement Patient/Patient significant other educated on need for PICC line placement. All risks and benefits explained and all questions and concerns addressed prior to procedure. Noted past medical history and allergies with no contraindications. INR and Plt counts within acceptable range. 5 fr PICC line inserted via RIGHT BRACHIAL vein using [employer]s [employer] US and Tip Location System. Sterile technique with maximum barrier precautions utilized. Blood return obtained from each of 3 lumens and each flushed easily with NS using proper technique. PICC secured with Stat-lock; biodisc and occlusive dressing applied. Stat portable chest x-ray obtained for PICC tip placement. *Baseline Arm Circumference 24CM. PICC lot # [id number]. INTERNAL LENGTH 38CM EXTERNAL LENGTH 0CM
--- NOTE | 2019-05-26 19:50 | NUR ---
DR. MARR AT BEDSIDE, DISCUSSED POC FOR THE PT.
[2019-05-26] MEDS: NOREPINEPHRINE 8 MG/250ML KIT 250 ML IV SCH (20:00)
--- NOTE | 2019-05-26 20:30 | NUR ---
PICC Line Dressing Changes Bleeding of PICC line site still noted. PICC line dressing change done with a sterile technique. Cleansed with chloraprep scrub/betadine. Stat lock, and bio-patch as available. Occlusive dressing applied.
--- NOTE | 2019-05-26 20:55 | NUR ---
RECEIVED A CALL FROM YVAN HERRING (PICC LINE RN), RELAYED CXR RESULT POST PICC LINE INSERTION, HE SAID "IT'S OK TO USE THE PICC LINE".
--- NOTE | 2019-05-26 20:58 | NUR ---
DR. WILSON AT BEDSIDE, MADE AWARE THAT CXR WAS DONE POST PICC LINE INSERTION.
[2019-05-26] MEDS: methylPREDNISolone SOD SUCC 40 MG/ML VL IV SCH (22:34)
--- NOTE | 2019-05-26 23:05 | NUR ---
OFF LEVOPHED, BP 112/72, HR 83.
--- NOTE | 2019-05-26 23:32 | NUR ---
DR. BENDER AT BEDSIDE, UPDATED ON PT'S STATUS AND DISCUSSED POC FOR THE PT.
[2019-05-27] VITALS (90 sets, daily range): BP systolic 82–139; BP diastolic 51–80
[2019-05-27] MEDS: IPRATROPIUM BROM 0.5 MG/2.5ML INH SOL NEB SCH ×4 (00:29→18:01)
[2019-05-27] MEDS: ALBUTEROL SULF 2.5 MG/0.5ML(0.5%) NEB SOLN NEB SCH ×4 (00:29→18:01)
--- NOTE | 2019-05-27 02:22 | NUR ---
ORAL CARE DONE, FISTFUL OF BLOOD CLOTS CAME OUT FROM THE MOUTH NOTED
[2019-05-27] MEDS ORDERED: IOHEXOL 350 MG/ML 100ML IJ ONE (03:17)
[2019-05-27] MEDS: VANCOMYCIN 1GM/250ML 250 ML IV SCH ×2 (03:44→22:06)
--- NOTE | 2019-05-27 03:50 | NUR ---
OFF UNIT FOR CTA, ACCOMPANIED BY ALAN CARDENAS, MACIE KNAPP AND PRIMARY RN CONNECTED TO VENTILATOR AND PORTABLE MONITOR. NO DISTRESS NOTED
[2019-05-27 03:59] LABS: Basophils # (auto) 0.1 uL; Basophils % (auto) 0.9 % (0.0-2.0); Eosinophils # (auto) 0 uL; Hematocrit 30.6 % (41.0-53.0); Lymphocytes # (auto) 0.5 uL; Lymphocytes % (auto) 4.7 % (10.0-50.0); Mean Corpuscular Hemoglobin 29.5 pg (28.0-32.0); Mean Corpuscular Hgb Conc. 32.7 g/dL (32.0-36.0); Monocytes # (auto) 0.1 uL; Monocytes % (auto) 0.7 % (0.0-12.0); Neutrophils # (auto) 9.3 uL; Neutrophils % (auto) 93.7 % (37.0-80.0); Platelet Count (auto) 346 10^3/uL (140-450); Red Blood Cells 3.39 10^6/uL (4.5-5.90); Red Cell Distribution Width 15.9 % (11.8-14.3)
--- NOTE | 2019-05-27 04:20 | NUR ---
BACK TO ROOM FROM CT, NO DISTRESS NOTED.
[2019-05-27 04:34] LABS: Albumin 1.6 g/dL (3.4-5.0); Calcium 7.9 mg/dL (8.5-10.1); Magnesium 1.9 mg/dL (1.6-2.6); Potassium 3.7 mmol/L (3.5-5.1)
[2019-05-27 04:38] LABS: BUN/Creatinine Ratio 33.7; Bilirubin, Total 0.5 mg/dL (0.2-1.0); Total Protein 5.7 g/dL (6.4-8.2)
--- NOTE | 2019-05-27 04:41 | NUR ---
MORNING CARE DONE, PARTIAL LINEN CHANGED, SKIN ASSESSED FOR ANY CHANGES. REPOSITIONED FOR COMFORT.
[2019-05-27] MEDS: SODIUM CHLORIDE 0.9% 1,000 ML IV SCH ×2 (06:45→18:04)
[2019-05-27] MEDS: PIPERACILLIN-TAZOB 3.375GM 100 ML IV SCH ×5 (06:45→23:36)
--- NOTE | 2019-05-27 07:05 | NUR ---
OPENING NOTE' SHIFT REPORT GET BACK AND ASSUMED CARE OF PT FROM DARRYL HERRING
--- NOTE | 2019-05-27 07:09 | NUR ---
Respiratory note: RECEIVED PATIENT ON V11 ESPRIT VENT ORALLY INTUBATED WITH AN 8.0 ETT SECURED VIA ANDI AT THE 24CM MARKING AT THE LIP, AND MECHANICALLY VENTILATED WITH THE CHARTED SETTINGS. SPO2 99%, LUNG SOUND CLEAR/DIM T/O, NO SECRETIONS WHEN SUCTIONED. SKIN IS WARM/DRY TO THE TOUCH AND IS INTACT NEAR ANDI SITE. THERE IS A NGT IN THE RIGHT NARE AND SECURED TO THE ETT, A PICC LINE PLACED IN THE RIGHT UPPER ARM. NON PITTING EDEMA NOTED IN BILATERAL UPPER EXTREMITIES. NO NEW AM CXR TO ASSESS. PATIENT IS UNRESPONSIVE TO BOTH VERBAL/TACTILE STIMULI AND IS SEDATED ON VERSED AND FENTANYL DRIPS. HE IS RESTING COMFORTABLY AND TOLERATING VENT WELL. FIO2 DECREASED TO 30% AT THIS TIME, NEVAEH ANDREWS NOTIFIED OF CHANGE. VENT PLUGGED INTO RED OUTLET AND ALL ALARMS ARE SET AND AUDIBLE. WILL CONTINUE TO ASSSESS PATIENT WELL VENTILATOR FUNCTION. MED-[facility] RUN INLINE.
[2019-05-27] MEDS: MIDAZOLAM DRIP 50 mg/50mL 50 ML IV SCH ×2 (07:45→20:06)
[2019-05-27] MEDS: fentaNYL Drip 2500mCg/250mlNS 250 ML IV SCH ×2 (07:49→18:08)
--- NOTE | 2019-05-27 09:00 | NUR ---
BLOOD CLOTS IN MOUTH WHEN SUCTIONING ORALLY. WILL CONTINUE TO MONITOR
--- NOTE | 2019-05-27 09:00 | NUR ---
PAGED DR. BENDER REGARDING ECG CHANGES
--- NOTE | 2019-05-27 09:12 | NUR ---
RECEIVED CALL REGARDING CT CHEST FINDINGS. CALL OUT TO PHYSICIAN
--- NOTE | 2019-05-27 09:25 | NUR ---
RECEIVED CALL BACK FROM DR. BENDER ORDERS RECEIVED
--- NOTE | 2019-05-27 10:15 | NUR ---
CALL TO DR. WILSON REGARDING CT RESULTS
[2019-05-27] MEDS: methylPREDNISolone SOD SUCC 40 MG/ML VL IV SCH ×2 (10:36→20:06)
[2019-05-27] MEDS: PANTOPRAZOLE 40 MG/10 ML VIAL INJ IV SCH (10:37)
[2019-05-27] MEDS: APIXABAN 5 MG TAB PO SCH ×2 (10:37→20:06)
[2019-05-27] MEDS: CLOPIDOGREL BISULFATE 75 MG TAB PO SCH (10:37)
[2019-05-27] MEDS: ASPirin-EC 81 mg tab PO SCH (10:37)
--- NOTE | 2019-05-27 10:45 | NUR ---
SUPERVISOR GROWER AT BEDSIDE
--- NOTE | 2019-05-27 11:14 | NUR ---
NUTRITION CONSULT/ASSESSMENT NOTES Please refer to link notes of nutrition screen form filed under the intervention section of the plan of care for further details. Est. Needs: 1900 kcal to 2200 kcal (30-35 kcal/kgBW), 75 gms to 88 gms pro (1.2-1.4 gms/kgBW d/t severe hypoalbuminemia, wound healing). Will continue to monitor pertinent labs and reassess nutrient need prn Thank you for this consult. Addendum: 05/27/19 at [address] Amended: Links added.
--- NOTE | 2019-05-27 12:43 | NUR ---
EEG-Electroencephalogram completed on 05/27/2019.
--- NOTE | 2019-05-27 14:00 | NUR ---
PAOLA HERRING AT BEDSIDE TO PLACE PICC LINE
--- NOTE | 2019-05-27 14:48 | NUR ---
PICC LINE READJUSTMENT: Using sterile technique and Sherlock TLS, PICC line readjusted in an attempt to move PICC line tip from left innominate vein into the SVC. Line secured w/ Stat-lock device, biodisc placed at insertion site, and sterile occlusive dressing applied. PICC line continues to be 38cm internally w/ 0cm externally. STAT PCXR completed and shows PICC line tip now in the distal SVC; radiologist confirmation pending. Ashlyn Lyon notified PICC tip now in good position.
--- NOTE | 2019-05-27 15:12 | NUR ---
PT TAKEN TO CT WITH BELKIS WILKERSON RN AND OLIVIER CARDENAS AT BEDSIDE.
--- NOTE | 2019-05-27 15:40 | NUR ---
PT RETURNED FROM CT. NO S/S OF DISTRESS. WILL CONTINUE TO MONITOR
--- NOTE | 2019-05-27 16:05 | NUR ---
PERIPHERAL LINES D/C'd DUE TO INFILTRATION AND DOES NOT FLUSH. CATHETERS INTACT. PRESSURE DRESSING APPLIED. WILL CONTINUE TO MONITOR
--- NOTE | 2019-05-27 16:21 | NUR ---
DR. WILSON AT BEDSIDE SPOKE WITH PT'S AND DAUGHTER REGARDING PT STATUS AND UPDATED. FAMILY VERBALIZES UNDERSTANDING OF PLAN AND INFORMATION GIVEN.
--- NOTE | 2019-05-27 19:15 | NUR ---
CLOSING NOTE SHIFT REPORT GIVEN AND CARE ENDORSED TO GEOVANNI HERRING
[2019-05-27] MEDS: PROPOFOL 100 ML IV SCH (19:57)
[2019-05-28] VITALS (90 sets, daily range): BP systolic 83–126; BP diastolic 52–82
[2019-05-28] MEDS: ALBUTEROL SULF 2.5 MG/0.5ML(0.5%) NEB SOLN NEB SCH ×5 (00:23→23:59)
[2019-05-28] MEDS: IPRATROPIUM BROM 0.5 MG/2.5ML INH SOL NEB SCH ×5 (00:23→23:59)
[2019-05-28] MEDS: SODIUM CHLORIDE 0.9% 1,000 ML IV SCH ×3 (02:57→17:42)
[2019-05-28] MEDS: PIPERACILLIN-TAZOB 3.375GM 100 ML IV SCH (04:34)
[2019-05-28] MEDS: MIDAZOLAM DRIP 50 mg/50mL 50 ML IV SCH ×2 (07:43→21:00)
[2019-05-28] MEDS: PANTOPRAZOLE 40 MG/10 ML VIAL INJ IV SCH (09:58)
[2019-05-28] MEDS: methylPREDNISolone SOD SUCC 40 MG/ML VL IV SCH ×2 (09:58→21:56)
[2019-05-28] MEDS: ASPirin-EC 81 mg tab PO SCH (09:58)
[2019-05-28] MEDS: APIXABAN 5 MG TAB PO SCH ×2 (09:58→21:56)
[2019-05-28] MEDS: CLOPIDOGREL BISULFATE 75 MG TAB PO SCH (09:58)
--- NOTE | 2019-05-28 10:36 | NUR ---
DR. WILSON AT BEDSIDE
--- NOTE | 2019-05-28 12:10 | NUR ---
DR. PEREZ AT BEDSIDE
--- NOTE | 2019-05-28 12:55 | NUR ---
FAMILY AND DAUGHTER AT BEDSIDE. UPDATED ON PATIENT STATUS. ALL QUESTIONS AND CONCERNS ADDRESSED AT THIS TIME
[2019-05-28] MEDS: VANCOMYCIN 1GM/250ML 250 ML IV SCH (14:09)
[2019-05-28] MEDS: fentaNYL Drip 2500mCg/250mlNS 250 ML IV SCH (14:13)
--- NOTE | 2019-05-28 14:39 | NUR ---
SPORTS STATISTICIAN PAGED AWAITING CALLBACK
--- NOTE | 2019-05-28 15:22 | NUR ---
call center analyst-I received a page from nurse Lorenz letting me know that there was an order to transfer this patient to higher level of care for osteomyelitis/abcess of the spine. I spoke with Dr. Felder regarding the transfer order, she gave me her cell phone number to give to [facility]. I spoke with nurse Lorenz to make sure that this was what the family was wanting (patient was discharged home on hospice last month)including possible spine surgery-he said they want everything done at this time). I faxed transfer request to [facility], providing contact information for Dr. Felder as well as Dr Archer and the nurse's station-I relayed this information to nurse Lorenz.
--- NOTE | 2019-05-28 15:30 | NUR ---
PAYROLL ASSOCIATE CALLBACK UPDATED ON STATUS AND REQUEST FOR TRANSFER TO HIGHER LEVEL OF CARE, HANK PAYROLL ASSOCIATE
[2019-05-28] MEDS: NOREPINEPHRINE 8 MG/250ML KIT 250 ML IV SCH (17:42)
[2019-05-28] MEDS: PROPOFOL 100 ML IV SCH (19:57)
--- NOTE | 2019-05-28 20:00 | NUR ---
ADMITTED FROM A CARE FACILITY. ALTERED. INTUBATED FOR AIRWAY PROTECTION. POSITIVE BLOOD CULTURES. PUPILS 4 AND SLUGGISH. THE LEFT EYE VEERS LATERALLY. LEFT EYE IS STRAIGHT ON. FILM ON THE LOWER PORTION OF THE EYE. ORALLY INTUBATED. RIGHT NARE NGT IS CLAMPED. NO RESIDUAL. ORAL CARE PRODUCED OLD BLOOD ( SMALL AMOUNT). LUNGS CLEAR. NOTHING SUCTIONED FROM THE ETT. ATRIAL FIB RATE HAS BEEN AROUND 100. NO FEVER. ORAL TEMP AND RECTAL TEMP PROBE IN PLACE. ABDOMEN SOFT. RIGHT ARM SWOLLEN. BOTH ARMS HAVE THIN , DRY SKIN. MULTIPLE BRUISES. ALL PULSES WEAK. RIGHT ELBOW SKIN TEAR. CLEANED WITH ANTIBACTERIAL SOAP AND NEW FOAM DRESSING APPLIED. POSTERIOR ELBOW IS ANOTHER SMALL SKIN TEAR. CLEANED WITH ANTIBACTERIAL SOAP AND NEW FOAM DRESSING APPLIED. LEFT FOREARM SKIN TEAR.DRESSING REMOVED. CLEANED WITH ANTIBACTERIAL SOAP AND NEW FOAM DRESSING APPLIED. COLES IN PLACE DRAINING CLOUDY YELLOW LIQUID. NO BM. ORAL CARE DONE. REPOSITIONED TO HIS LEFT SIDE. HEELS OFF BED. SCDS ON.
--- NOTE | 2019-05-28 22:00 | NUR ---
VSS. LUNGS CLEAR. NOTHING SUCTIONED FROM THE ETT. SMALL AMOUNT OF BLOOD MIXED IN CLEAR ORAL SECRETIONS. LIKES HIS HEAD TURNED TO THE LEFT. BOLSTERED THE HEAD TO TRY TO KEEP IT STRAIGHT. HE RESISTS. BILATERAL ARMS UP ON PILLOWS. SMALL AMOUNT OF SANGUINOUS DRNG FROM THE SKIN TEARS. ATRIAL FIB RATE 91.
[2019-05-29] VITALS (99 sets, daily range): BP systolic 89–126; BP diastolic 57–79
--- NOTE | 2019-05-29 | NUR ---
WHEN MOVING HIM, HE WILL WAKE UP AND MOVE ALL EXTREMITIES. HE IS OTHERWISE QUIET. REMAINS IN ATRIAL FIB RATE AROUND 100. SCLERAL EDEMA. BOTH EYES DEVIATE LATERALLY. SIZE 4 AND SLUGGISH. OLD DARK BLOOD ORALLY. NOTHING SUCTIONED FROM THE LUNGS. ABDOMEN SOFT. COLES DRAINING MINIMUM AMOUNT OF CLOUDY YELLOW LIQUID. RIGHT ARM IS SWOLLEN. LEFT ARM IS NORMAL. BOTH LEGS ARE WARM, NO EDEMA, BUT PULSES ARE WEAK. HEELS OFF BED. REPOSITIONED TO THE RIGHT SIDE. VSS.
--- NOTE | 2019-05-29 02:00 | NUR ---
REPOSITIONED TO BACK. ORAL CARE. STILL SOME OLD DARK BLOOD MIX IN MOUTH. LUNGS CLEAR. SCLERAL EDEMA. ALVARENGA WHEN YOU WAKE HIM UP.
--- NOTE | 2019-05-29 03:14 | NUR ---
AM LABS DRAWN
[2019-05-29 03:59] LABS: Basophils # (auto) 0 uL; Basophils % (auto) 0.1 % (0.0-2.0); Eosinophils # (auto) 0 uL; Hematocrit 31.8 % (41.0-53.0); Hemoglobin 10.1 g/dL (13.5-17.5); Lymphocytes # (auto) 0.3 uL; Lymphocytes % (auto) 2.7 % (10.0-50.0); Mean Corpuscular Hemoglobin 28.8 pg (28.0-32.0); Mean Corpuscular Hgb Conc. 31.8 g/dL (32.0-36.0); Mean Corpuscular Volume 90.4 fL (80.0-100.0); Monocytes # (auto) 0.3 uL; Monocytes % (auto) 2.7 % (0.0-12.0); Neutrophils # (auto) 11.5 uL; Neutrophils % (auto) 94.5 % (37.0-80.0); Platelet Count (auto) 411 10^3/uL (140-450); Red Blood Cells 3.52 10^6/uL (4.5-5.90); Red Cell Distribution Width 15.7 % (11.8-14.3); White Blood Cell 12.1 10^3/uL (4.4-10.8)
--- NOTE | 2019-05-29 04:15 | NUR ---
CHG BATH. SILICONE LOTION OVER ENTIRE BODY. SKIN IS VERY THIN AND FRAGILE. RIGHT ARM IS SWOLLEN. LEFT LEG HAS SEVERAL VERTICAL ECCHYMOTIC LINES. SCDS ON. REMAINS IN ATRIAL FIB. RATE RANGES FROM 85-110. SBP STABLE. NO FEVER. SKIN IN ZEESHAN AREA GOOD. DTI ON BUTTOCKS. REPOSITIONED TO LEFT SIDE. ORAL CARE DONE.
[2019-05-29 04:20] LABS: Albumin 1.6 g/dL (3.4-5.0); Calcium 8.3 mg/dL (8.5-10.1); Potassium 3.9 mmol/L (3.5-5.1)
[2019-05-29 04:24] LABS: BUN/Creatinine Ratio 42.9; Bilirubin, Total 0.3 mg/dL (0.2-1.0); Total Protein 5.5 g/dL (6.4-8.2)
--- NOTE | 2019-05-29 04:30 | NUR ---
SAT DECREASED TO 88% O 30%. RT INCREASED THE FIO2 TO 40%. O2 SAT IS NOW 96%.
--- NOTE | 2019-05-29 04:55 | NUR ---
RT DECREASED THE FIO2 TO 35%
--- NOTE | 2019-05-29 04:56 | NUR ---
Respiratory note: FIO2 TITRATED TO 35%, RN AWARE
[2019-05-29] MEDS: VANCOMYCIN 1GM/250ML 250 ML IV SCH ×2 (06:21→22:05)
--- NOTE | 2019-05-29 06:27 | NUR ---
ORAL CARE. NOTHING SUCTIONED FROM THE ETT. BALDO. ATRIAL FIB RATE RANGE 83-100
[2019-05-29] MEDS: IPRATROPIUM BROM 0.5 MG/2.5ML INH SOL NEB SCH ×4 (06:46→23:57)
[2019-05-29] MEDS: ALBUTEROL SULF 2.5 MG/0.5ML(0.5%) NEB SOLN NEB SCH ×4 (06:46→23:57)
[2019-05-29] MEDS: APIXABAN 5 MG TAB PO SCH ×2 (10:00→21:58)
[2019-05-29] MEDS: ASPirin-EC 81 mg tab PO SCH (10:38)
[2019-05-29] MEDS: CLOPIDOGREL BISULFATE 75 MG TAB PO SCH (10:38)
[2019-05-29] MEDS: PANTOPRAZOLE 40 MG/10 ML VIAL INJ IV SCH (10:38)
[2019-05-29] MEDS: methylPREDNISolone SOD SUCC 40 MG/ML VL IV SCH (10:38)
--- NOTE | 2019-05-29 11:20 | NUR ---
DR. HEDRICK HERE TO SEE PATIENT. SEE MD NOTES AND EMR FOR ANY NEW ORDERS.
--- NOTE | 2019-05-29 13:34 | NUR ---
DR. URIARTE HERE TO SEE PATIENT. SEE MD NOTES AND EMR FOR ANY NEW ORDERS.
[2019-05-29] MEDS: SODIUM CHLORIDE 0.9% 1,000 ML IV SCH (14:45)
[2019-05-29] MEDS: MEROPENEM 1GM IVPB 100 ML IV SCH ×2 (14:47→22:05)
--- NOTE | 2019-05-29 15:10 | NUR ---
DR. MARR HERE TO SEE PATIENT. DR. MARR SPOKE TO THOMAS AND DAUGHTER WELL UPDATED THEM ON PATIENTS CURRENT CONDITION. SEE MD NOTES AND EMR FOR ANY NEW ORDERS.
--- NOTE | 2019-05-29 19:40 | NUR ---
Opening Shift Note: Patient intubated/sedated. Neuro status presents with 3 mm size pupils; left eye brisk and right eye sluggish; oral suctioning of a small amount of blood and none through the ET tube; patient does open eyes with deep pain and facial grimacing with suctioning. Current rhythm afib in 90s. Vent settings: AC/VC: ET size 8 and 24 @ the lip; FiO2 35%, TV 500, RR 12, PEEP 6. Right nare NG clamped: residual 0 ml. Last BM unknown and hypoactive bowel sounds. Fatima inserted on 05/25/19 presents with sediment/blood and yellow in color. Skin: generalized bruising; RUE x2 skin tears with optifoam gentle dressings, left forearm skin tear with optifoam gentle dressing; left buttock DTI with optifoam gentle dressing. IV PICC RUE x3 lumen inserted on 05/27/19/ Current drips: Versed @ 5, Fentanyl @ 110, and NS @ 70 ml/hr. Will perform oral care and reposition Q2H/prn.
[2019-05-29] MEDS: PROPOFOL 100 ML IV SCH (19:57)
[2019-05-29] MEDS: MIDAZOLAM DRIP 50 mg/50mL 50 ML IV SCH (20:12)
[2019-05-29] MEDS: fentaNYL Drip 2500mCg/250mlNS 250 ML IV SCH (20:13)
--- NOTE | 2019-05-29 21:00 | NUR ---
Sedation Vacation: Held at this time related to sedation vacation attempt on day shift.
--- NOTE | 2019-05-29 21:30 | NUR ---
Call from Transfer Center: Social service is to call [phone] option 3 in the morning per transfer center service support representative.
--- NOTE | 2019-05-29 22:00 | NUR ---
2200 Eliquis held at this time related to blood in Fatima catheter tubing and blood present upon oral suctioning.
[2019-05-30] VITALS (97 sets, daily range): BP systolic 101–146; BP diastolic 59–98
--- NOTE | 2019-05-30 02:30 | NUR ---
Patient bathe/linen change Patient given complete bed bath. Skin integrity assessed for any changes. Linens changed. Patient repositioned for comfort. Addendum: 05/30/19 at 0537 by NADJA BRYSON RN CHG bath given
[2019-05-30 03:37] LABS: Basophils # (auto) 0.1 uL; Basophils % (auto) 1.1 % (0.0-2.0); Eosinophils # (auto) 0 uL; Eosinophils % (auto) 0.1 % (0.0-7.0); Hematocrit 31.8 % (41.0-53.0); Hemoglobin 10.3 g/dL (13.5-17.5); Lymphocytes # (auto) 0.7 uL; Lymphocytes % (auto) 5.3 % (10.0-50.0); Mean Corpuscular Hemoglobin 29.5 pg (28.0-32.0); Mean Corpuscular Hgb Conc. 32.5 g/dL (32.0-36.0); Mean Corpuscular Volume 90.7 fL (80.0-100.0); Monocytes # (auto) 0.5 uL; Monocytes % (auto) 4.3 % (0.0-12.0); Neutrophils # (auto) 11.1 uL; Neutrophils % (auto) 89.2 % (37.0-80.0); Platelet Count (auto) 402 10^3/uL (140-450); Red Cell Distribution Width 15.7 % (11.8-14.3); White Blood Cell 12.4 10^3/uL (4.4-10.8)
[2019-05-30 03:55] LABS: BUN/Creatinine Ratio 45.8; Calcium 8.4 mg/dL (8.5-10.1); Magnesium 2.1 mg/dL (1.6-2.6); Potassium 3.9 mmol/L (3.5-5.1)
[2019-05-30] MEDS: MEROPENEM 1GM IVPB 100 ML IV SCH ×3 (06:12→22:48)
[2019-05-30] MEDS: IPRATROPIUM BROM 0.5 MG/2.5ML INH SOL NEB SCH ×3 (06:51→18:08)
[2019-05-30] MEDS: ALBUTEROL SULF 2.5 MG/0.5ML(0.5%) NEB SOLN NEB SCH ×3 (06:51→18:08)
[2019-05-30] MEDS: SODIUM CHLORIDE 0.9% 1,000 ML IV SCH ×2 (07:36→14:35)
--- NOTE | 2019-05-30 08:00 | NUR ---
OPEN RECEIVED REPORT FROM NIGHT RN. ASSUMED CARE OF ICU PATIENT, FULL CODE STATUS. PATIENT SEDATED ON VENT. CURRENT FIO2 AT 35%, PEEP +6. PATIENT HAS NGT TO RIGHT CARLTON, NPO STATUS AT THIS TIME. COLES TO GRAVITY. RIGHT UPPER ARM PICC PATENT AND FLUSHED. SEE INSIDE SALES SUPERVISOR AND IV FLOW SHEET FOR FURTHER PATIENT INFORMATION. CONTINUE CARE. PENDING TRANSFER TO HIGHER LEVEL OF CARE.
--- NOTE | 2019-05-30 08:15 | NUR ---
DR. MARR AT BEDSIDE: UPDATE MD UPDATED ON PT'S STATUS, LABS AND PENDING TRANSFER. NO ORDERS GIVEN AT THIS TIME. WILL CONTINUE CARE.
--- NOTE | 2019-05-30 08:30 | NUR ---
DR. KRISHNA AT BEDSIDE: UPDATE MD UPDATED ON PT'S STATUS, LABS AND POC FOR TODAY. PENDING TRANSFER TO HIGHER LEVEL OF CARE. NO ORDERS RECEIVED. WILL CONTINUE TO MONITOR.
[2019-05-30] MEDS: MIDAZOLAM DRIP 50 mg/50mL 50 ML IV SCH (09:54)
[2019-05-30] MEDS: PANTOPRAZOLE 40 MG/10 ML VIAL INJ IV SCH (09:54)
[2019-05-30] MEDS: APIXABAN 5 MG TAB PO SCH ×3 (10:00→22:48)
[2019-05-30] MEDS: CLOPIDOGREL BISULFATE 75 MG TAB PO SCH (10:11)
--- NOTE | 2019-05-30 10:42 | NUR ---
DR. GARZA AT BEDSIDE: ORDERS MD UPDATED ON PT'S STATUS, LABS AND POC FOR TODAY. ORDERS TO BE GIVEN AND TO BE CARRIED OUT. WILL CONTINUE TO MONITOR.
[2019-05-30] MEDS ORDERED: METOPROLOL TARTRATE 1MG/1ML-5ML VIAL IV ONE ×2 (13:00→13:02)
--- NOTE | 2019-05-30 13:10 | NUR ---
DR. GARZA CALLED: ORDERS TALKED WITH DR. GARZA. INFORMED HER THAT I WITNESSED PT'S HR A. FIB UP TO A RATE OF 150'S. NOW RANGING FROM 120'S TO 140'S. ORDERS GIVEN FOR LOPRESSOR 2.5 MG IVP X1 NOW. SEE EMAR FOR TIME GIVEN. CONTINUE CARE.
[2019-05-30] MEDS: VANCOMYCIN 1GM/250ML 250 ML IV SCH (13:50)
--- NOTE | 2019-05-30 13:57 | NUR ---
Respiratory note: INCREASED FI02 TO 45% DUE TO SATS DROPPING TO 89%. NEVAEH PALAFOX. SATS IMPROVED TO 92%.
[2019-05-30] MEDS ORDERED: METOPROLOL TARTRATE 25 MG TAB PO ONE (14:15)
[2019-05-30] MEDS ORDERED: methylPREDNISolone SOD SUCC 40 MG/ML VL IV ONE (14:15)
--- NOTE | 2019-05-30 16:06 | NUR ---
NUTRITION FOLLOW UP NOTES Pt wt today is 63.0 kg Pt's intubated, sedated, no immediate family member at bedside during rounds this morning. Pt's no significant negative weight change noted since last admission. Pt's currently NPO, no order for alternate nutrition support yet at this time. Noted per RN that pt has no bowel sounds, holding EN support. Noted patient waiting for transfer to a spinal unit for higher level of care for evaluation of paraspinal abscess T4 level per MD doc. Willl continue to monitor and reassess prn. Est. Needs: 1900 kcal to 2200 kcal (30-35 kcal/kgBW), 75 gms to 88 gms pro (1.2-1.4 gms/kgBW d/t severe hypoalbuminemia, wound healing). Will continue to monitor pertinent labs and reassess nutrient need prn LABS: BUN 27 H, CR 0.63 L, GLUC 126 H, CA 8.3 L, ALB 1.6 L GI: Noted no bowel sounds per RN doc BS: 14 moderate risk, abscess on spine, DTI per RN doc. Please see wound assessment notes for full report PES: 1.) Altered nutrition related lab values RT acute/chronic medical condition AEB hyperglycemia, hypocalcemia, elev. BUN and severe hypoalbuminemia 2.) Increased nutrient needs RT current/chronic medical/nutritional status AEB 87% IBW, BMI 20.5 kg/m2, decreased muscle mass, severe hypoalbuminemia, wound healing, intubated, sedated, NPO. Comments Will continue to monitor NPO status, pertinent labs, skin status and weight trends. F/u in 2 to 3 days. Additional Recommendation: 1.) If still NPO in next 48 hrs, consider alternate nutrition support if medically appropriate. 2.) EN support preferred with formula choice of Jevity 1.2 Morro @ 70 ml/hr goal rate as tolerated. 3.) If Albumin continues trending down, consider Prostat 1 pkt BID. 4.) Consider daily MVI with minerals and Asc acid 500 mgs BID. 5.) Advance gradually to oral diet when medically appropriate. 6.) Refer to RD for further nutrition educ. and weight monitoring upon discharge. 7.) Continue current plan of care.
--- NOTE | 2019-05-30 16:28 | NUR ---
assessment Patient is a 78 year old male who is on a vent. Prior to admission patient resided at [facility] and functioned with assistance of [facility]. Per Diane and Nina daughter patient will resume hospice with [facility] after transfer and on discharge. Patient has home 02, fww, cane, hospital bed, and a wheelchair for home use. Diane and Nina want patient transferred for spine surgery and evaluation. Both Nina and Diane spoke with Tiffanie shoe parts caser regarding transfer. Nina and Diane verbalized understanding and agreed to discharge plan of transfer. Addendum: 05/30/19 at 1632 by Nadja POON Amended: Links added.
--- NOTE | 2019-05-30 18:00 | NUR ---
BAGGAGE AND MAIL AGENT YANE AT BEDSIDE: CARDIOLOGY BAGGAGE AND MAIL AGENT INFORMED ON PT'S CURRENT HEMODYNAMICS AND LABS FOR TODAY. WILL CARRY OUT ANY ORDERS GIVEN. CONTINUE CARE.
[2019-05-30] MEDS ORDERED: DIGOXIN (250MCG/ML) 2 ML AMPULE IV ONE (18:15)
[2019-05-30] MEDS: PROPOFOL 100 ML IV SCH (18:45)
--- NOTE | 2019-05-30 19:45 | NUR ---
Opening Shift Note: Patient intubated/sedated. Neuro status presents with 3 mm size pupils, sluggish bilaterally. Oral suctioning of a small amount of blood and small amount of thick creamy secretions through the ET tube; patient does open eyes with deep pain and facial grimacing with suctioning. Current rhythm afib in 80s. Vent settings: AC/VC: ET size 8 and 24 @ the lip; FiO2 45%, TV 500, RR 12, PEEP 6. Right nare NG clamped: residual 0 ml. Last BM unknown and hypoactive bowel sounds. Fatima inserted on 05/25/19 presents with sediment is dark ru in color. Skin: generalized bruising; RUE x2 skin tears with optifoam gentle dressings, left forearm skin tear with optifoam gentle dressing; left buttock DTI with optifoam gentle dressing; bilateral heel blanchable redness. IV PICC RUE x3 lumen inserted on 05/27/19/ Current drips: Versed @ 5, Fentanyl @ 200, and NS @ 60 ml/hr. Will perform oral care and reposition Q2H/prn.
[2019-05-30] MEDS: methylPREDNISolone SOD SUCC 40 MG/ML VL IV SCH (22:48)
[2019-05-30] MEDS: METOPROLOL TARTRATE 25 MG TAB PO SCH (22:49)
--- NOTE | 2019-05-30 23:00 | NUR ---
Sedation Vacation Initiated: Versed and Fentanyl decreased per protocol. Will assess patient response to decreased sedation.
[2019-05-31] VITALS (103 sets, daily range): BP systolic 89–175; BP diastolic 57–111
[2019-05-31] MEDS: IPRATROPIUM BROM 0.5 MG/2.5ML INH SOL NEB SCH ×4 (00:26→18:31)
[2019-05-31] MEDS: ALBUTEROL SULF 2.5 MG/0.5ML(0.5%) NEB SOLN NEB SCH ×4 (00:26→18:31)
--- NOTE | 2019-05-31 04:00 | NUR ---
Patient bathe/linen change Patient given complete CHG bath. Skin integrity assessed for any changes. Linens changed. Patient repositioned for comfort.
[2019-05-31 04:05] LABS: Hematocrit 31.1 % (41.0-53.0); Hemoglobin 10.1 g/dL (13.5-17.5); Mean Corpuscular Hemoglobin 29.7 pg (28.0-32.0); Mean Corpuscular Hgb Conc. 32.6 g/dL (32.0-36.0); Mean Corpuscular Volume 91.2 fL (80.0-100.0); Platelet Count (auto) 382 10^3/uL (140-450); Red Blood Cells 3.41 10^6/uL (4.5-5.90); Red Cell Distribution Width 15.7 % (11.8-14.3); White Blood Cell 13.8 10^3/uL (4.4-10.8)
[2019-05-31 04:23] LABS: Potassium 3.8 mmol/L (3.5-5.1)
[2019-05-31 04:29] LABS: Band Neutrophils % (manual) 0; Basophils % (manual) 0 (0.0-2.0); Blast Cells 0; Calcium 7.8 mg/dL (8.5-10.1); Eosinophils % (manual) 0 (0-7); Metamyelocytes % 0; Myelocytes % 0; Promyelocytes % 0; Reactive Lymphocytes 0
[2019-05-31 05:14] LABS: Lymphocytes % (manual) 2 (10.0-50.0); Monocytes % (manual) 1 (0-12)
[2019-05-31] MEDS: VANCOMYCIN 1GM/250ML 250 ML IV SCH ×2 (06:45→21:34)
[2019-05-31] MEDS: MEROPENEM 1GM IVPB 100 ML IV SCH ×3 (06:45→22:40)
--- NOTE | 2019-05-31 06:50 | NUR ---
Versed shut off at this time: patient is still categorized under moderate sedation.
[2019-05-31] MEDS: fentaNYL Drip 2500mCg/250mlNS 250 ML IV SCH (07:49)
--- NOTE | 2019-05-31 09:42 | NUR ---
re-assessment Spoke with daughter Nina and Diane yesterday. I informed them of prior consult of needing assistance with home care and meals. Family informed me they did not ask for consult. Patient lives at [facility] and is well taken care of. Patient has discharge plan to transfer for spine surgery then when discharged he will return to [facility]. Addendum: 05/31/19 at 0944 by Nadja Kessler Amended: Links added.
[2019-05-31] MEDS: DIGOXIN 0.125 MG TAB PO SCH (10:13)
[2019-05-31] MEDS: methylPREDNISolone SOD SUCC 40 MG/ML VL IV SCH ×2 (10:13→21:34)
[2019-05-31] MEDS: APIXABAN 5 MG TAB PO SCH ×2 (10:13→21:34)
[2019-05-31] MEDS: PANTOPRAZOLE 40 MG/10 ML VIAL INJ IV SCH (10:13)
[2019-05-31] MEDS: METOPROLOL TARTRATE 25 MG TAB PO SCH ×2 (10:13→21:34)
[2019-05-31] MEDS: CLOPIDOGREL BISULFATE 75 MG TAB PO SCH (10:16)
--- NOTE | 2019-05-31 10:59 | NUR ---
Resumed care at 0715, orders reviewed and ongoing assessments being done. Being treated for multiple problems and remains intubated. Prior shift discontinued the Versed infusion. Upon arrival still asleep and not following any direction. He now attempts to open eyes when spoken to and moves head side to side. Moving arms and legs as well. Very weak and not reaching for any medical tubes. Reorient to staff, place and situation. Maintaining on FentaNLY gtt for comfort, titrating as appropriate. Upon first assessment, noted both lower extremities cold and only able to obtain pedal pulses with Doppler. From knees down to feet, blotchy, red-purplish skin. Both knees bruised also. Applied warm blankets to legs. Dr. Archer, neurologist was in to round at 0830, no new orders from him.
[2019-05-31] MEDS: SODIUM CHLORIDE 0.9% 1,000 ML IV SCH (12:25)
--- NOTE | 2019-05-31 14:05 | NUR ---
I called [facility] transfer center [phone] and spoke with Ju-provided her with contact information for Dr. Fay-Ju will let me know if their MD is willing to accept after he speaks with our MD. I also made Ju aware that patient is covered under Medicare right now due to being on Hospice prior to admission. Per Ju she will be faxing a transfer back agreement over.
--- NOTE | 2019-05-31 15:00 | NUR ---
I called [facility] transfer center [phone] and spoke with Ju, she is requesting that they receive a disc with patient's radiology procedures prior to being able to accept him. I let Ju know that they have access to view patient's radiology procedures through [employer]-that they need to contact their commercial lease administrator and have them e-mail our radiology special procedure tech to request to view the films. Per Ju she will contact them.
--- NOTE | 2019-05-31 16:23 | NUR ---
[facility] that [facility] neuro-surgeon was able to view the radiology films-the patient is a surgical candidate but would need to be admitted to their medical ICU and they are at capacity, they can not accept the patient at this time.
--- NOTE | 2019-05-31 17:33 | NUR ---
Dr. Fay rounded at 1310, out to lunch when she rounded and did not speak with her. Read notes and will continue current plan of care. FentaNLy was titrated off at 1400. Is more responsive. Daughter and have been at bedside throughout the day. Opening eyes at times and moving arms and legs. Applied soft mitten to right hand, moving more than left. Continue to reorient throughout the day. At 1528 converted to SR with PAC's from AFIB .
--- NOTE | 2019-05-31 18:49 | NUR ---
1745, gagging and coughing. Suctioned large amount of creamy jackson secretions from EET, not so much throughout shift until now. Moving head more and facial grimacing and looking more uncomfortable. FentaNLY had been of since 1400. BP also rising with increase in HR ([id number]/90's), (HR 177-121) Restarted FentaNLY gtt for comfort and continue to monitor vital signs and titrate as appropriate.
--- NOTE | 2019-05-31 19:10 | NUR ---
OPENING SHIFT RECEIVED REPORT FROM DAY SHIFT RN. ASSUMED CARE OF PATIENT. PATIENT IS INTUBATED - SIZE 8, 24 AT THE LIP; SEDATED - FENTANYL 25MCG/HR. PATIENT WITHDRAWS TO PAIN, POSITIVE COUGH AND GAG REFLEX, NON PURPOSEFUL MOVEMENTS. RIGHT UPPER ARM PICC TLC - CLEAN/DRY/INTACT. COLES HUNG TO GRAVITY ON BED RAIL. REPOSITIONED FOR COMFORT. BED IN LOWEST POSITION, SIDE RAILS UP X2. WILL CONTINUE TO MONITOR. Addendum: 05/31/19 at 2 by EDISON BLANCO RN RN *COLES HUNG TO GRAVITY BELOW BLADDER.
[2019-05-31] MEDS: PROPOFOL 100 ML IV SCH (19:57)
[2019-05-31] MEDS: MIDAZOLAM DRIP 50 mg/50mL 50 ML IV SCH (19:57)
[2019-06-01] VITALS (97 sets, daily range): BP systolic 105–180; BP diastolic 39–98
[2019-06-01] MEDS: IPRATROPIUM BROM 0.5 MG/2.5ML INH SOL NEB SCH ×4 (00:13→18:53)
[2019-06-01] MEDS: ALBUTEROL SULF 2.5 MG/0.5ML(0.5%) NEB SOLN NEB SCH ×4 (00:13→18:53)
--- NOTE | 2019-06-01 03:30 | NUR ---
MORNING CARE PERFORMED MORNING CARE WITH CHG WIPES AND WASH CLOTHS TO THE FACE. FULL LINEN CHANGE AND GOWN CHANGED. ORAL AND COLES CARE PERFORMED. REPOSITIONED FOR COMFORT. SKIN REASSESSED AT THIS TIME. BED IN LOWEST POSITION, SIDE RAILS UP X2. WILL CONTINUE TO MONITOR.
[2019-06-01 04:05] LABS: Basophils # (auto) 0.2 uL; Basophils % (auto) 1.2 % (0.0-2.0); Eosinophils # (auto) 0 uL; Eosinophils % (auto) 0.1 % (0.0-7.0); Hematocrit 32.5 % (41.0-53.0); Hemoglobin 10.5 g/dL (13.5-17.5); Lymphocytes # (auto) 0.3 uL; Lymphocytes % (auto) 1.7 % (10.0-50.0); Mean Corpuscular Hemoglobin 29.4 pg (28.0-32.0); Mean Corpuscular Hgb Conc. 32.4 g/dL (32.0-36.0); Mean Corpuscular Volume 90.7 fL (80.0-100.0); Monocytes # (auto) 0.5 uL; Monocytes % (auto) 2.7 % (0.0-12.0); Neutrophils # (auto) 16.8 uL; Neutrophils % (auto) 94.3 % (37.0-80.0); Nucleated Red Blood Cells % 0.1 %; Platelet Count (auto) 377 10^3/uL (140-450); Red Blood Cells 3.58 10^6/uL (4.5-5.90); Red Cell Distribution Width 15.6 % (11.8-14.3); White Blood Cell 17.8 10^3/uL (4.4-10.8)
[2019-06-01 04:22] LABS: Magnesium 1.9 mg/dL (1.6-2.6); Potassium 4.1 mmol/L (3.5-5.1)
[2019-06-01 04:25] LABS: Calcium 8.7 mg/dL (8.5-10.1)
[2019-06-01] MEDS: SODIUM CHLORIDE 0.9% 1,000 ML IV SCH (06:02)
[2019-06-01] MEDS: MEROPENEM 1GM IVPB 100 ML IV SCH ×3 (06:02→21:46)
--- NOTE | 2019-06-01 07:10 | NUR ---
END OF SHIFT REPORT GIVEN TO DAY SHIFT RN. CARE ENDORSED.
[2019-06-01] MEDS: fentaNYL Drip 2500mCg/250mlNS 250 ML IV SCH (07:49)
[2019-06-01] MEDS: APIXABAN 5 MG TAB PO SCH ×2 (09:56→21:48)
[2019-06-01] MEDS: DIGOXIN 0.125 MG TAB PO SCH (09:57)
[2019-06-01] MEDS: methylPREDNISolone SOD SUCC 40 MG/ML VL IV SCH ×2 (09:57→21:46)
[2019-06-01] MEDS: PANTOPRAZOLE 40 MG/10 ML VIAL INJ IV SCH (09:57)
[2019-06-01] MEDS: METOPROLOL TARTRATE 25 MG TAB PO SCH ×2 (09:58→21:47)
[2019-06-01] MEDS: CLOPIDOGREL BISULFATE 75 MG TAB PO SCH (09:58)
--- NOTE | 2019-06-01 12:47 | NUR ---
Resumed care at 0730, orders reviewed and ongoing assessments being done. Being treated for multiple problems and remains intubated. FentaNLY infusing for comfort. Upon arrival still sleepy but able to open eyes when spoken to and slowly lifting arms, more so the right arm. Continues to move head from side to side. Moving arms and legs as well. Reorient to staff, place and situation. Dr. Fay rounded at 11 am, discussed condition and plan of care. 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 Plan of care discussed with daughter Nina at bedside. Tapered down FentaNLY for CPAP trial and finally discontinued at 1200. Nadine CARDENAS initiated CPAP at 11 am. Tolerated changes and ABG done. Dr. Holloway in unit rounding on patients. Nadine made him aware and forward ABG, awaiting for him to assess and give order to extubate if appropriate.
[2019-06-01] MEDS ORDERED: MAGNESIUM SULFATE 1GM/100ML 100 ML IV ONE (13:00)
[2019-06-01] MEDS ORDERED: BUMETANIDE 2.5mg/10ml (0.25 mg/ml) INJ IV ONE ×2 (14:15→19:00)
[2019-06-01] MEDS: VANCOMYCIN 1GM/250ML 250 ML IV SCH (14:18)
--- NOTE | 2019-06-01 14:44 | NUR ---
I called [facility] and spoke with Sameera in Admitting [phone] to make her aware of this transfer to higher level of care request. Per Sameera she will reach out to Dr. Montenegro and let me know if he is willing to accept this patient. Faxed face sheet and thoracic spine CT report to [phone].
--- NOTE | 2019-06-01 15:33 | NUR ---
Dr. Holloway rounded and assessed for extubation, gave order to extubate. Daughter Nina and Diane at bedside and plan of care discussed. Nadine RT extubated at 1445 without incident. Prior to extubation 2mg of Bumex given IVP, urine output post Bumex 560 ml. Remains fatigued and keeps eyes closed. Daughter remains at bedside.
[2019-06-01] MEDS ORDERED: DILTIAZEM HCL 25 MG/5 ML VIAL IV ONE (15:59)
[2019-06-01] MEDS ORDERED: DILTIAZEM HCL 25 MG/5 ML VIAL IV PRN (16:00)
--- NOTE | 2019-06-01 17:01 | NUR ---
I received a call from Sameera in Admitting at [facility] letting me know that they have no ICU beds available at this time, will follow up in the morning.
[2019-06-01] MEDS ORDERED: ETOMIDATE (2MG/ML) 20ML VIAL IV ONE (17:20)
[2019-06-01] MEDS ORDERED: ROCURONIUM 10MG/ML 10ML VIAL IV ONE (17:22)
[2019-06-01] MEDS ORDERED: PROPOFOL 100 ML IV ONE (17:32)
--- NOTE | 2019-06-01 17:36 | NUR ---
PT REINTUBATED WITH AN 8.0 ETT AND SECURED WITH A ANDI AT 24 UPPER LIP. POSITIVE COLOR CHANGE WITH CAPNOMETER AND BILATERAL BREATH SOUNDS. PT PLACED ON V13 VENT WITH PREVIOUS SETTINGS AC 12, 500, +6, AND 40% FIO2.
[2019-06-01] MEDS: PROPOFOL 100 ML IV SCH (17:51)
--- NOTE | 2019-06-01 19:10 | NUR ---
opening note received report from day shift rn. patient intubated and sedated on prop. patient not tolerating ventilator. started increasing prop to help patient from coughing and stacking breaths. afib in 110's on cardiac cath lab manager. bp 120's/60's on no pressure medications. right upper arm picc line cdi. right ngt patent and clamped. cedillo patent draining to gravity. multiple skin issues, for more information see interventions. for gtts and their titrations see iv spread sheet. bed set to lowest setting. all fall and safety precautions in place. pillows placed under bony prominence.
--- NOTE | 2019-06-01 19:59 | NUR ---
At [address] Gaffney regarding Afib RVR 120-150. Reviewed medications and vital signs. Orders taken and administered Cardizem 10mg IVP at 1553. Amiodarone will be initiated also. At 1645 repositioned and personal care given. Post turn increase work of breathing and drop in pulse oximetry <90. Fio2 increased to 100% via mask. Bilateral breath sounds, crackles heard throughout. Dr. Holloway in the unit and assessed the situation and spoke with daughter Nina, regarding reintubation. Agreed with reintubation. Intubated at 1728 without incident. 20mg of Etomidate given. (see RT notes). Diprivan was restarted for sedation, continue with current plan of care.
[2019-06-01] MEDS: AMIODARONE HCL 200 MG TAB PO SCH (21:47)
[2019-06-02] VITALS (101 sets, daily range): BP systolic 83–152; BP diastolic 50–87
[2019-06-02] MEDS: ALBUTEROL SULF 2.5 MG/0.5ML(0.5%) NEB SOLN NEB SCH ×4 (00:16→18:23)
[2019-06-02] MEDS: IPRATROPIUM BROM 0.5 MG/2.5ML INH SOL NEB SCH ×4 (00:16→18:23)
--- NOTE | 2019-06-02 02:00 | NUR ---
bed bath given completed linen change, chg bath given. skin reassessed and no new break down noted
[2019-06-02] MEDS ORDERED: ACETAMINOPHEN 650 mg PER 20 mL UD GT PRN (04:00)
--- NOTE | 2019-06-02 04:18 | NUR ---
started cooling measures. patient rectal temp 101.5'F. began patient on cooling measures. room temperature placed to cool. ice packs placed on patient. cooling fan set to cool room down
[2019-06-02] MEDS: PROPOFOL 100 ML IV SCH ×3 (04:33→19:53)
[2019-06-02 04:37] LABS: Basophils # (auto) 0 uL; Basophils % (auto) 0.2 % (0.0-2.0); Eosinophils # (auto) 0 uL; Hematocrit 32.1 % (41.0-53.0); Hemoglobin 10.4 g/dL (13.5-17.5); Lymphocytes # (auto) 0.3 uL; Mean Corpuscular Hemoglobin 29.1 pg (28.0-32.0); Mean Corpuscular Hgb Conc. 32.3 g/dL (32.0-36.0); Mean Corpuscular Volume 90.1 fL (80.0-100.0); Monocytes # (auto) 0.6 uL; Neutrophils % (auto) 93.8 % (37.0-80.0); Nucleated Red Blood Cells % 0.1 %; Platelet Count (auto) 382 10^3/uL (140-450); Red Blood Cells 3.56 10^6/uL (4.5-5.90); Red Cell Distribution Width 15.8 % (11.8-14.3); White Blood Cell 13.9 10^3/uL (4.4-10.8)
[2019-06-02 04:50] LABS: Potassium 3.2 mmol/L (3.5-5.1)
[2019-06-02 05:00] LABS: BUN/Creatinine Ratio 32.8; Calcium 8.2 mg/dL (8.5-10.1); Magnesium 1.9 mg/dL (1.6-2.6)
[2019-06-02] MEDS: VANCOMYCIN 1GM/250ML 250 ML IV SCH ×2 (06:21→21:55)
[2019-06-02] MEDS: MEROPENEM 1GM IVPB 100 ML IV SCH ×3 (06:21→22:30)
--- NOTE | 2019-06-02 07:30 | NUR ---
end of report gave report to day shift rn. bed in lowest position. vss.
[2019-06-02] MEDS: fentaNYL Drip 2500mCg/250mlNS 250 ML IV SCH (07:49)
[2019-06-02] MEDS: methylPREDNISolone SOD SUCC 40 MG/ML VL IV SCH ×2 (10:20→21:56)
[2019-06-02] MEDS: AMIODARONE HCL 200 MG TAB PO SCH ×2 (10:20→21:56)
[2019-06-02] MEDS: CLOPIDOGREL BISULFATE 75 MG TAB PO SCH (10:20)
[2019-06-02] MEDS: APIXABAN 5 MG TAB PO SCH ×2 (10:21→21:56)
[2019-06-02] MEDS: DIGOXIN 0.125 MG TAB PO SCH (10:21)
[2019-06-02] MEDS: PANTOPRAZOLE 40 MG/10 ML VIAL INJ IV SCH (10:26)
[2019-06-02] MEDS: METOPROLOL TARTRATE 25 MG TAB PO SCH ×2 (10:26→21:56)
[2019-06-02] MEDS ORDERED: Jevity 1.2 Cal/Fiber 1 Liter GT SCH (11:30)
[2019-06-02] MEDS ORDERED: MAGNESIUM SULFATE 1GM/100ML 100 ML IV ONE (12:15)
--- NOTE | 2019-06-02 12:15 | NUR ---
WOUND CARE NOTE: IN TO SEE PATIENT AT THIS TIME FOR SKIN INTEGRITY. PATIENT CONTINUES TO BE INTUBATED, SEDATED. HE HAS CURRENT ANALY SCORE OF 10. HE CONTINUES TO DISPLAY INTACT DTI TO RIGHT AND LEFT SACRUM. NO CHANGE IN WOUND STATUS SEEN AT THIS TIME. WOUND CONTINUES TO BE INTACT, MAROON, WITH PINK PERIWOUND. HE CONTINUES TO WEAR OPTIFOAM GENTLE SACRAL DRESSING TO COVER AND PROTECT. ORDERED SPECIALTY AIR BED AT THIS TIME. PATIENT TO BE PLACED, PENDING DELIVERY BY [facility]. HE HAS MULTIPLE INTACT LINEAR EXCORIATIONS NOTED TO THE LEFT CHENG. NO OPEN OR WEEPING AREAS NOTED. LEFT OPEN TO AIR. PATIENT HAS THREE NEW SKIN TEARS NOTED TO BILATERAL UPPER EXTREMITIES. APPLIED THERAHONEY, OPTIFOAM GENTLE DRESSINGS TO WOUNDS. ALL WOUND STATS CAN BE FOUND WITHIN WOUND ASSESSMENT, LINKED TO THIS NOTE. NEW WOUND PHOTOS TAKEN FOR REFERENCE AT THIS TIME. RECOMMEND: SPECIALTY AIR MATTRESS, THERAHONEY, OPTIFOAM GENTLE DRESSINGS Q 3 DAYS, CONTINUATION WITH ALL OTHER WOUND CARE ORDERS PREVIOUSLY PRESCRIBED BY MD. WOUND CARE TEAM WILL CONTINUE TO MONITOR. Addendum: 06/02/19 at 1559 by Tiny Pyle RN Amended: Links added.
--- NOTE | 2019-06-02 12:15 | NUR ---
DR GARZA VISITS AND EXAMINES PATIENT - ORDERS RECEIVED.
[2019-06-02] MEDS: POTASSIUM CHL 20MEQ/100ML 100 ML IV SCH ×2 (12:30→14:41)
--- NOTE | 2019-06-02 14:00 | NUR ---
DR SHEPARD VISITS AND EXAMINES PATIENT- NO NEW ORDERS RECEIVED.
--- NOTE | 2019-06-02 15:00 | NUR ---
Nutrition Follow-up Notes Wt.: 64.6 kg based on bed scale as of yesterday. Pt's extubated and re-intubated yesterday, sedated, with Propofol @ 7.752 ml/hr providing 256 kcal from Fat. Pt's currently NPO, noted to start on EN support with Jevity 1.2 Morro @ 70 ml/hr to provide 2016 kcal, 93 gms pro and 1355 ml free water. Est. Needs: 1900 kcal to 2200 kcal (30-35 kcal/kgBW), 75 gms to 88 gms pro (1.2-1.4 gms/kgBW d/t severe hypoalbuminemia, wound healing). Will continue to monitor pertinent labs and reassess nutrient need prn LABS: Gluc 121 H, Cl 97 L, K 3.2 L, CO2 36 H, BUN 19 H, Cr 0.58 L, Ca 8.2 L; Tpro 5.5 L, Alb 1.6 L SKIN : Kemal score 10, abscess on spine, DTI per stock patcher. Pls refer to latest scheduling manager's notes for further details re: tx plans. Noted pt's on MVI with minerals, Asc acid supplements. GI: Pt's no bowel activity since 05/25/19 per stock patcher. PES: Altered nutrition related lab values RT acute/chronic medical condition AEB hyperglycemia, hypocalcemia, elev. BUN and severe hypoalbuminemia Increased nutrient needs RT current/chronic medical/nutritional status AEB 87% IBW, BMI 20.5 kg/m2, decreased muscle mass, severe hypoalbuminemia, wound healing, intubated, sedated, NPO. Will continue to monitor NPO status, EN tolerance, pertinent labs, skin status and weight trends. F/u in 2 to 3 days. Additional Rec.: 1.) If still NPO with EN support and remains on current rate of Propofol, consider lower feeding rate of Jevity 1.2 Morro @ 60 ml/hr goal rate as tolerated. 2.) Advance gradually to oral diet when medically appropriate. 3.) Refer to RD for further nutrition educ. and weight monitoring upon discharge. 4.) Continue current plan of care.
--- NOTE | 2019-06-02 15:30 | NUR ---
ETT NOTED AT 26 CM - RT NOTIFIED - RETURNED POSITION TO 24CM.
--- NOTE | 2019-06-02 17:06 | NUR ---
I placed [facility] on will-call pending transfer to [facility]-I made nurse Candi aware.
--- NOTE | 2019-06-02 19:15 | NUR ---
OPENING SHIFT RECEIVED REPORT FROM DAY SHIFT RN. ASSUMED CARE OF PATIENT. PATIENT IN BED INTUBATED - SIZE 8, 24 AT THE LIP; SEDATED - PROPOFOL - 25MCG/KG/MIN. POSITIVE COUGH AND GAG REFLEX, PATIENT WITHDRAWS TO PAIN. CURRENTLY ON AC 12/ TV 500/ FI02 30%/PEEP 6, 02 SAT - 95%. RIGHT UPPER ARM PICC - CLEAN/DRY/INTACT. COLES HUNG TO GRAVITY. REPOSITIONED FOR COMFORT. BED IN LOWEST POSITION, SIDE RAILS UP X2. WILL CONTINUE TO MONITOR.
[2019-06-02] MEDS: Pro-Stat SF 30ml Vanilla GT SCH (21:55)
[2019-06-02] MEDS: ASCORBIC ACID 500 MG TAB PO SCH (21:56)
[2019-06-03] VITALS (101 sets, daily range): BP systolic 64–140; BP diastolic 33–84
[2019-06-03] MEDS: ALBUTEROL SULF 2.5 MG/0.5ML(0.5%) NEB SOLN NEB SCH ×4 (00:05→18:48)
[2019-06-03] MEDS: IPRATROPIUM BROM 0.5 MG/2.5ML INH SOL NEB SCH ×4 (00:05→18:48)
--- NOTE | 2019-06-03 03:15 | NUR ---
MORNING CARE / SKIN TEAR / BED TRANSFER PERFORMED MORNING CARE WITH CHG WIPES AND WASH CLOTHS TO THE FACE. FULL LINEN CHANGE AND GOWN CHANGED. ORAL AND COLES CARE PERFORMED. REPOSITIONED FOR COMFORT. SKIN REASSESSED AT THIS TIME. SKIN TEAR - NEW RIGHT INNER FOREARM SKIN TEAR. PHOTOS TAKEN. CLEANSED WITH NORMAL SALINE, OPTIFOAM PLACED. PATIENT TRANSFERRED TO SPECIALLY BED. BED IN LOWEST POSITION, SIDE RAILS UP X2. WILL CONTINUE TO MONITOR.
[2019-06-03 04:33] LABS: Basophils # (auto) 0 uL; Basophils % (auto) 0.1 % (0.0-2.0); Eosinophils # (auto) 0 uL; Hematocrit 34.9 % (41.0-53.0); Hemoglobin 11.3 g/dL (13.5-17.5); Lymphocytes # (auto) 0.2 uL; Lymphocytes % (auto) 1.8 % (10.0-50.0); Mean Corpuscular Hemoglobin 29.6 pg (28.0-32.0); Mean Corpuscular Hgb Conc. 32.5 g/dL (32.0-36.0); Mean Corpuscular Volume 91.1 fL (80.0-100.0); Monocytes # (auto) 0.5 uL; Neutrophils # (auto) 12.5 uL; Neutrophils % (auto) 94.1 % (37.0-80.0); Platelet Count (auto) 335 10^3/uL (140-450); Red Blood Cells 3.83 10^6/uL (4.5-5.90); Red Cell Distribution Width 15.9 % (11.8-14.3); White Blood Cell 13.2 10^3/uL (4.4-10.8)
[2019-06-03 05:00] LABS: Potassium 3.5 mmol/L (3.5-5.1)
[2019-06-03 05:04] LABS: BUN/Creatinine Ratio 39.6; Calcium 8.3 mg/dL (8.5-10.1); Magnesium 2.2 mg/dL (1.6-2.6)
--- NOTE | 2019-06-03 05:15 | NUR ---
HOSPITALIST PAGED HOSPITALIST, AWAITING CALL BACK.
--- NOTE | 2019-06-03 05:24 | NUR ---
HOSPITALIST CALLED BACK SPOKE WITH DR. BYRNES OVER THE PHONE. MADE AWARE THAT PATIENT IS SHIVERING, CURRENTLY ON PROPOFOL - 50MCG/KG/MIN, TEMPERATURE 99.8 DEGREES FAHRENHEIT. SUGGESTED FOR DEMEROL IV, DR. BYRNES WILL REVIEW AND CALL BACK. NO NEW ORDERS AT THIS TIME.
[2019-06-03] MEDS: MEROPENEM 1GM IVPB 100 ML IV SCH ×3 (05:53→22:11)
--- NOTE | 2019-06-03 07:32 | NUR ---
END OF SHIFT REPORT GIVEN TO DAY SHIFT RN. CARE ENDORSED.
--- NOTE | 2019-06-03 08:00 | NUR ---
ASSESS- PT. LYING ON HILL ROM AIR BED ON VENT SIZE # 8.0 ET, 24 AT THE LIP, AC-12, TV-500, PEEP-6, FIO2-30%. LUNGS CLEAR IRMA. INSPIRATORY AND EXPIRATORY. PT. HAS GAG/COUGH REFLEX. PUPILS 3 AND BRISK IRMA. EYES CLOSED. RESPONDS TO PAINFUL/TACTILE STIMULI. NO MOVEMENT OF EXTREMITIES SEEN. ON PROPOFOL GTT. AT 50 MCG. PT. HAS PICC MERRITT TLC INTACT. NGT RT. NARE INACT WITH JEVITY 1.2 AT 20 CC/HR. ABD. SOFT, FLAT. BOWEL SOUNDS ALL FOUR QUADRANTS. NO EMESIS. F/C TO GRAVITY WITH SEDIMENT WITH LT. ANNETTA URINE. RADIAL PULSES STRONG, PALPABLE IRMA. DORSALIS PEDAL PULSES WEAK, DOPPLER ONLY. FEET IRMA. COLD TO TOUCH WITH CAPILLARY REFILL > 3 SEC. 2 PLUS EDEMA ARMS IRMA. WITH ARMS WEEPING IRMA. WRAPPED IN CHUX. IRMA. ARMS WITH BRUISES. SKIN TEAR LT. FOREARM TIMES 2 WITH OPTIFOAM DSG. D/I. RT. UPPER ARM WITH SKIN TEARS TIMES 2 WITH OPTIFOAM DSG. D/I. DTI LT. BUTTOCK WITH OPTIFOAM DSG. D/I.
[2019-06-03] MEDS: PROPOFOL 100 ML IV SCH ×4 (08:10→23:12)
--- NOTE | 2019-06-03 09:45 | NUR ---
PT. HAD MODERATE SIZE SOFT BROWN STOOL. ZEESHAN CARE DONE AND LINENS CHANGED. TRIAD CREAM PLACED ON BUTTOCKS.
[2019-06-03] MEDS: MULTIPLE VITAMIN TAB PO SCH (09:52)
[2019-06-03] MEDS: PANTOPRAZOLE 40 MG/10 ML VIAL INJ IV SCH (09:52)
[2019-06-03] MEDS: methylPREDNISolone SOD SUCC 40 MG/ML VL IV SCH ×2 (09:52→22:13)
[2019-06-03] MEDS: AMIODARONE HCL 200 MG TAB PO SCH ×2 (09:53→22:12)
[2019-06-03] MEDS: ASCORBIC ACID 500 MG TAB PO SCH ×2 (09:53→22:12)
[2019-06-03] MEDS: CLOPIDOGREL BISULFATE 75 MG TAB PO SCH (09:53)
[2019-06-03] MEDS: APIXABAN 5 MG TAB PO SCH ×2 (09:53→22:12)
[2019-06-03] MEDS: METOPROLOL TARTRATE 25 MG TAB PO SCH ×2 (09:53→22:12)
[2019-06-03] MEDS: Pro-Stat SF 30ml Vanilla GT SCH ×2 (09:54→22:00)
[2019-06-03] MEDS: DIGOXIN 0.125 MG TAB PO SCH (09:54)
--- NOTE | 2019-06-03 10:00 | NUR ---
DR. GARZA Provider/Hospitalist at bedside. GAVE UPDATE ON PT. NEW ORDERS RECEIVED.
--- NOTE | 2019-06-03 10:10 | NUR ---
AUSCULTATED GOOD PLACEMENT WITH NGT. NO EMESIS. NO RESIDUAL. BOWEL SOUNDS ALL FOUR QUADRANTS. INCREASED TF OF JEVITY TO 30 CC/HR.
--- NOTE | 2019-06-03 12:00 | NUR ---
Family updated on pt status Family of BRYON BYERS updated on patient's status and condition. All questions and concerns addressed. AND DAUGHTER verbalized understanding. VISITING AT THE BS.
--- NOTE | 2019-06-03 13:22 | NUR ---
RT NOTE: SPUTUM SAMPLE OBTAINED AND SENT TO LAB.
--- NOTE | 2019-06-03 14:15 | NUR ---
DR. SHEPARD Provider/Hospitalist at bedside.
--- NOTE | 2019-06-03 14:20 | NUR ---
VANCO TROUGH 18.0. GAVE VANCO ORDERED PER PHARMACY.
[2019-06-03] MEDS: VANCOMYCIN 1GM/250ML 250 ML IV SCH (14:28)
--- NOTE | 2019-06-03 16:00 | NUR ---
TEMP 101.1 AXILLARY. REMOVED SHEET FROM PT. PLACED ICE PACKS IRMA. AXILLA AND GROIN AREA.
--- NOTE | 2019-06-03 17:30 | NUR ---
HAVE NOT RECEIVED BED YET FROM [facility] FOR HIGHER LEVEL OF CARE.
--- NOTE | 2019-06-03 18:15 | NUR ---
TEMP DECREASED TO 98.4 ORALLY. REMOVED ICE PACKS. PLACED SHEET ON PT.
--- NOTE | 2019-06-03 19:45 | NUR ---
Opening Shift Note Received pt on mechanical ventilator sedated on propofol gtt at 50 mcg. Pt withdraws to pain but does not open eyes. Atrial Flutter on bedside monitor. Full assessment done see interventions. Bed locked in lowest position. All alarms on and audible. Pt in full view of RN.
--- NOTE | 2019-06-03 20:30 | NUR ---
Elimination Pt had moderate sized soft brown BM. Dionna care provided and partial linen change performed at this time.
--- NOTE | 2019-06-03 22:30 | NUR ---
Paged Hospitalist to inform of very labile blood pressures. Pt continues to have low blood pressure and sometimes have higher blood pressures. Order to start levophed in case pt's systolic sustains being low.
[2019-06-04] VITALS (81 sets, daily range): BP systolic 58–193; BP diastolic 27–101
[2019-06-04] MEDS: ALBUTEROL SULF 2.5 MG/0.5ML(0.5%) NEB SOLN NEB SCH ×4 (00:14→18:00)
[2019-06-04] MEDS: IPRATROPIUM BROM 0.5 MG/2.5ML INH SOL NEB SCH ×4 (00:15→18:00)
--- NOTE | 2019-06-04 01:50 | NUR ---
Pt converted to sinus rhythm at this time.
[2019-06-04] MEDS: MEROPENEM 1GM IVPB 100 ML IV SCH (05:28)
[2019-06-04] MEDS: PROPOFOL 100 ML IV SCH ×2 (05:28→12:36)
[2019-06-04] MEDS: VANCOMYCIN 1GM/250ML 250 ML IV SCH (05:28)
--- NOTE | 2019-06-04 05:40 | NUR ---
RHYTHM CHANGES Pt had a couple episodes of long pauses and HR went to 43. 12 lead EKG done. Pt went back into Atrial fibrillation. Labs drawn and sent. Awaiting results.
[2019-06-04 06:49] LABS: Mean Corpuscular Hemoglobin 29.4 pg (28.0-32.0); Mean Corpuscular Hgb Conc. 32.3 g/dL (32.0-36.0); Mean Corpuscular Volume 90.9 fL (80.0-100.0); Platelet Count (auto) 268 10^3/uL (140-450); Red Blood Cells 3.41 10^6/uL (4.5-5.90); Red Cell Distribution Width 16.3 % (11.8-14.3)
[2019-06-04 07:05] LABS: Albumin 1.5 g/dL (3.4-5.0); BUN/Creatinine Ratio 39.3; Potassium 3.5 mmol/L (3.5-5.1)
[2019-06-04 07:08] LABS: Bilirubin, Total 0.5 mg/dL (0.2-1.0); Total Protein 5.3 g/dL (6.4-8.2)
[2019-06-04 07:14] LABS: Basophils % (manual) 0 (0.0-2.0); Blast Cells 0; Eosinophils % (manual) 0 (0-7); Metamyelocytes % 0; Myelocytes % 0; Promyelocytes % 0; Reactive Lymphocytes 0
[2019-06-04 08:21] LABS: Band Neutrophils % (manual) 4; Lymphocytes % (manual) 2 (10.0-50.0); Monocytes % (manual) 1 (0-12)
--- NOTE | 2019-06-04 08:30 | NUR ---
Respiratory note: CALLED [address] KRISHNA TO REPORT CRITICAL ABG RESULTS. NEITHER PHONE NUMBER WENT THROUGH, OR ALLOWED FOR ME TO LM. NEVAEH CALLAWAY ALSO TRYING THE SAME NUMBERS WITH SAME OUTCOME.
--- NOTE | 2019-06-04 08:58 | NUR ---
Respiratory note: LM FOR DR KRISHNA TO RETURN MY CALL FOR CRITICAL ABG RESULTS. NEVAEH CALLAWAY MADE AWARE OF WORKING NUMBER THAT I USED TO LM.
[2019-06-04] MEDS ORDERED: MIDAZOLAM DRIP 50 mg/50mL 50 ML IV ONE (10:06)
[2019-06-04] MEDS ORDERED: fentaNYL Drip 2500mCg/250mlNS 250 ML IV SCH (10:22)
[2019-06-04] MEDS ORDERED: MIDAZOLAM DRIP 50 mg/50mL 50 ML IV SCH (10:22)
[2019-06-04] MEDS: methylPREDNISolone SOD SUCC 40 MG/ML VL IV SCH (11:43)
[2019-06-04] MEDS: FLUCONAZOLE 200MG/100ML 100 ML IV SCH ×2 (11:43→13:54)
[2019-06-04] MEDS: APIXABAN 5 MG TAB PO SCH (11:44)
[2019-06-04] MEDS: CLOPIDOGREL BISULFATE 75 MG TAB PO SCH (11:44)
[2019-06-04] MEDS: ASCORBIC ACID 500 MG TAB PO SCH (11:44)
[2019-06-04] MEDS: PANTOPRAZOLE 40 MG/10 ML VIAL INJ IV SCH (11:44)
[2019-06-04] MEDS: AMIODARONE HCL 200 MG TAB PO SCH (11:44)
[2019-06-04] MEDS: DIGOXIN 0.125 MG TAB PO SCH (11:46)
[2019-06-04] MEDS: MULTIPLE VITAMIN TAB PO SCH (11:46)
[2019-06-04] MEDS: Pro-Stat SF 30ml Vanilla GT SCH (12:00)
[2019-06-04] MEDS: METOPROLOL TARTRATE 25 MG TAB PO SCH (12:03)
[2019-06-04] MEDS ORDERED: ACETYLCYSTEINE 20%(200MG/ML) SOL 4ML NEB SCH (14:00)
--- NOTE | 2019-06-04 14:00 | NUR ---
DR GARZA IN TO SEE PATIENT AND SPEAK WITH FAMILY RE: PATIENT'S CONDITION - DISCUSSED OPTION OF HIGHER LEVEL OF CARE OR TERMINAL WEAN. PATIENT'S FAMILY TEARFUL - SUPPORT OFFERED.
--- NOTE | 2019-06-04 16:00 | NUR ---
FAMILY INFORMED SOAPING DEPARTMENT SUPERVISOR THAT FAMILY IS EN ROUTE AND THEY WOULD LIKE TO TERMINALLY WEAN PATIENT THIS EVENING. SUPPORT PROVIDED.
[2019-06-04] MEDS ORDERED: acetaZOLAMIDE SODIUM 500 MG VL IV SCH (18:07)
--- NOTE | 2019-06-04 19:39 | NUR ---
Respiratory note: PT TERMINALLY WEANED ORDERED. PLACED ON 4L N/C. VENT REMOVED FROM ROOM. RNS REMAIN AT BEDSIDE, FAMILY RETURNING TO ROOM.
--- NOTE | 2019-06-04 19:40 | NUR ---
Terminal Wean Pt terminally weaned by RT at this time. Support given to the family and comfort offered. Morphine and ativan to be given every 2 hours per md order and to keep pt comfortable.
[2019-06-04] MEDS: MORPHINE SULF INJ 2 MG/ML SYRINGE 1ML IV PRN ×2 (19:45→21:44)
[2019-06-04] MEDS: LORazepam 2MG/ML-1ML VIAL IV PRN ×2 (19:49→21:48)
--- NOTE | 2019-06-04 22:44 | NUR ---
Pt asystole. Dr. Minor paged to pronounce pt. Support given to family.
--- NOTE | 2019-06-04 23:08 | NUR ---
[employer] Called to inform of . Jn, [employer] rep, stated pt is not a candidate. reference # [id number].
--- NOTE | 2019-06-04 23:29 | NUR ---
[employer] called. Awaiting call back.
--- NOTE | 2019-06-04 23:56 | NUR ---
Rn Private Duty called back and released pt. [phone] by Kyle Alejandro
--- NOTE | 2019-06-05 01:05 | NUR ---
post mortem care done and called family to let them know that [employer] will be picking the body up and will be contacting them.
[2019-06-05] MEDS ORDERED: FLUCONAZOLE 200MG/100ML 100 ML IV SCH (10:00)
== END 2019-06-04 22:44 | disposition expired | DRG 870 ==
LOC: EDBD 19:46 → ER 19:46 → TELE 19:47 → ICU WEST 05-26 12:30
PROVIDERS: ADMIT Nurse Practitioner; ATTEND Internal Medicine
PROC: 5A1955Z Respiratory Ventilation, Greater than 96 Consecutive Hours (ICD-10-PCS; principal; 2019-05-26)
PROC: 0BH17EZ Insertion of Endotracheal Airway into Trachea, Via Natural or Artificial Opening (ICD-10-PCS; 2019-05-26)
PROC: 5A1945Z Respiratory Ventilation, 24-96 Consecutive Hours (ICD-10-PCS; 2019-06-01)
PROC: 02HV33Z Insertion of Infusion Device into Superior Vena Cava, Percutaneous Approach (ICD-10-PCS; 2019-06-03)
DX: A41.52 Sepsis due to Pseudomonas (principal); R65.21 Severe sepsis with septic shock; J96.21 Acute and chronic respiratory failure with hypoxia; N17.0 Acute kidney failure with tubular necrosis; G93.41 Metabolic encephalopathy; I21.A1 Myocardial infarction type 2; I26.99 Other pulmonary embolism without acute cor pulmonale; E43 Unspecified severe protein-calorie malnutrition; J15.1 Pneumonia due to Pseudomonas; J44.1 Chronic obstructive pulmonary disease with (acute) exacerbation; G93.1 Anoxic brain damage, not elsewhere classified; I48.20 Chronic atrial fibrillation, unspecified; I50.32 Chronic diastolic (congestive) heart failure; J44.0 Chronic obstructive pulmonary disease with (acute) lower respiratory infection; M46.24 Osteomyelitis of vertebra, thoracic region; Z99.11 Dependence on respirator [ventilator] status; R41.0 Disorientation, unspecified; D72.823 Leukemoid reaction; J45.909 Unspecified asthma, uncomplicated; I25.10 Atherosclerotic heart disease of native coronary artery without angina pectoris; K59.00 Constipation, unspecified; M48.04 Spinal stenosis, thoracic region; M46.44 Discitis, unspecified, thoracic region; Z79.82 Long term (current) use of aspirin; Z79.899 Other long term (current) drug therapy; Z79.51 Long term (current) use of inhaled steroids; Z83.6 Family history of other diseases of the respiratory system; Z81.8 Family history of other mental and behavioral disorders; Z82.49 Family history of ischemic heart disease and other diseases of the circulatory system; Z68.20 Body mass index [BMI] 20.0-20.9, adult
CPT/HCPCS: 36415; 36569; 36600; 70450; 71045; 71275; 72128; 74176; 80048; 80053; 80162; 80202; 81001; 82565; 82805; 83605; 83735; 83880; 84484; 85007; 85025; 85027; 85379; 85610; 85730; 87040; 87070; 87077; 87081; 87086; 87088; 87186; 87205; 93005; 93970; 94002; 94003; 94640; 95819; 99291; C9113; G0378; J0696; J1450; J2185; J2250; J2543; J2704; J3480